=== PATIENT | male | born 1935 | race Caucasian/White ===

== ENCOUNTER 2023-12-04 14:17 | Inpatient (IN) | payer MEDICARE, SELFPAY ==
[2023-12-04 10:23] VITALS: BP 173/83
--- NOTE | 2023-12-04 11:10 | ED.GENMED ---
History of Present Illness
<Charmaine Wheeler PA-C - Last Filed: 12/04/23 16:58>
General
Chief Complaint: Throat Problem
Source: patient
Exam Limitations: none
Time Seen by Provider: 12/04/23 11:07
Nursing documentation reviewed up to this point in time: agreed with
History of Present Illness
History of Present Illness:
88-year-old male with a past medical history of A-fib on warfarin, insulin dependent diabetes, esophageal stricture presenting the emergency department today with concerns of intermittent lower rib pain as well as vomiting and spitting up of phlegm.
Patient reports that last night, he was watching the game and noticed that he could not swallow his saliva. He started spitting up a lot. Patient reports that at this time, he not have anything to eat or drink. He denies globus sensation, denies
hemoptysis, shortness of breath. He has also had a lot of coughing. His daughter present in room reports that patient has to get his esophageal dilation done when he gets like this. Patient states that hurts at times when he swallows. Daughter
reports that how he appears now is how he appeared when he had an esophageal stricture. He has had to do these procedures in the past. Patient denies belly pain, does note some chills but denies fevers.
Past History
<Charmaine Wheeler PA-C - Last Filed: 12/04/23 16:58>
Past History
ED Past Medical History: Arrthythmia (Atrial fibrillation), HTN, IDDM and Other (gout)
ED Past Surgical History: Cholecystectomy and Orthopedic
Social History
Personal:
Living: with family
Employment: Retired
Review of Systems
<Charmaine Wheeler PA-C - Last Filed: 12/04/23 16:58>
Review of Systems
All Other Systems: ROS reviewed and negative except as documented in HPI and ROS
Phy Exam
<Charmaine Wheeler PA-C - Last Filed: 12/04/23 16:58>
Physical Exam
Physical Exam:
General: Patient is well appearing and in no acute distress; non-toxic
Skin: Warm and dry, no rashes or lesions
Head: Normocephalic, atraumatic
Eyes: Sclera non-icteric. EOMs intact.
Mouth: No pharyngeal erythema, uvula midline.
Cardiac: Regular rate and rhythm, no murmurs
Pulm: Normal respiratory effort, no wheezes, rales, rhonchi
Abdomen: Mild epigastric abdominal tenderness, no palpable abdominal masses
Neuro: CN II-XII intact, no focal neurologic deficits.
Psychiatric: Appropriate mood and affect.
Course
<MARISEL Nguyen Filed: 12/04/23 16:58>
Orders/Labs/Results
Orders:
Orders
12/04/23 11:29
IV Insert/Care/Rem.- Treatment PRN
CR Chest - 2 Views Urgent
Comment:
Reason For Exam: lower chest pain
12/04/23 11:38
Complete Blood Count/With Diff Urgent
12/04/23 12:15
Comprehensive Metabolic Panel Urgent
Lipase Urgent
12/04/23 12:22
Consult Gastroenterology [GASTROINTESTINAL CONSULT] Urgent
Consulting Provider: Violetta Gomez
Was physician already notified: Yes
12/04/23 12:38
PTT Urgent
Prothrombin Time Urgent
12/04/23 13:24
Morphine Sulfate 4 mg IV NOW STA
12/04/23 14:04
Admit/Transfer Patient As Directed
Co-Sign Provider:
Level of Care: Inpatient admission
Assign to:: Telemetry
Physician / Group: Ada
Diagnosis: Transaminitis/Pancreatitis
Reason for Telemetry: Arrhythmia
Date to Stop Telemetry: 12/07/23
Time to Stop Telemetry: 11:00
Reason for Hospitalization: IVFs, IV abx
Expected length of stay greater than two midnights?: Yes
ELOS- Estimated Length of Stay in days: 3
I certify the patient meets the requirements for IP care: Yes
12/04/23 14:05
PRN Pain Medication Management As Directed
May give lesser potent ordered pain med per pt: Yes
preference::
Protocol:: Medication orders for pain may be administered in a
manner that supports deferring to patient preference
when the pt is:
- Requesting an ordered lesser potent pain medication.
Least to most potent pain medications are defined
as: acetaminophen < NSAID < tramadol < opioids
(morphine, oxycodone, hydromorphone).
- Requesting a lesser dose of the same medication IF
ORDERED.
- Requesting a less intrusive route of administration
if both routes are prescribed by the provider (PO <
IV).
12/04/23 15:55
Dextrose 50%-Water [Dextrose 50% Syringe] 12.5 grams IV [id number] PRN
Glucagon [GlucaGen] 1 mg IM PRN PRN
HYDROmorphone [Dilaudid] 0.25 mg IV Q3HPRN PRN
Ondansetron Injectable [Zofran] 4 mg IV Q6HPRN PRN
12/04/23 15:55
Activity As Directed
Activity Level: Out of Bed-Early Mobility
With Assistance
Bedside Glucose Monitoring As Directed
Frequency: AC&HS
Additional Instructions:: Change to q6h if pt on TPN, tube feeding or not eating
I&O [Intake/ Output] As Directed
Frequency: q12h
Pneumatic Compression Sleeves As Directed
Type: Knee high
Vital Signs As Directed
Frequency: Per unit guidelines
Weight As Directed
Frequency: Daily
Ot Eval And Treat Routine
Pt Eval And Treat Routine
Activity Level: Out of Bed-Early Mobility
DX Deep Vein Thrombosis Video Routine
12/04/23 16:00
Cefepime HCl [Maxipime] 2,000 mg IV Q12H
MetroNIDAZOLE 500 MG/100 ML [Flagyl 500 mg] 100 ml IV Q8H
12/04/23 16:30
Insulin Aspart Corrective Mod [Novolog Flexpen-Moderate Resistance] See Protocol SC AC
12/05/23 06:00
Complete Blood Count/No Diff IN AM
Comprehensive Metabolic Panel IN AM
Glycohemoglobin (HgbA1c) IN AM
Lipase IN AM
Magnesium IN AM
12/05/23 08:00
Pantoprazole [Protonix IV] 40 mg IV DAILY
12/07/23 11:00
DC Protocol for Telemetry ONCE
12/09/23 08:00
Clonidine [Bgotlzzs-Rls-4] 0.3 mg TRANSDERM WE
Abnormal Lab Results
12/04/23 12/04/23 12/04/23
11:38 12:15 12:38
WBC 17.1 H 10^3/uL
(4.8-10.8)
RBC 4.01 L 10^6/uL
(4.70-6.10)
Hgb 12.7 L g/dL
(13.0-18.0)
Hct 35.8 L %
(39.0-52.0)
MCH 31.7 H pg
(27.0-31.0)
MPV 12.2 H fL
(7.4-10.4)
Abs Immat Gran (auto) 0.2 H 10^3/uL
(0-0.05)
Absolute Neuts (auto) 15.5 H 10^3/uL
(1.4-6.5)
Absolute Lymphs (auto) 0.4 L 10^3/uL
(1.2-3.4)
Absolute Monos (auto) 1.0 H 10^3/uL
(0.1-0.6)
Immature Gran % 0.9 H %
(0-0.5)
Neutrophils % 90.9 H %
(42.2-75.2)
Lymphocytes % 2.1 L %
(20.5-51.1)
PT 17.6 H Sec
(11.4-14.6)
Carbon Dioxide 21 L mmol/L
(22-30)
BUN 37 H mg/dl
(9-20)
Creatinine 2.0 H mg/dL
(0.7-1.3)
Glucose 136 H mg/dl
(70-99)
Total Bilirubin 3.4 H mg/dl
(0.2-1.3)
AST 533 H* U/L
(17-59)
ALT 248 H U/L
(0-50)
Alkaline Phosphatase 396 H U/L
(38-126)
Lipase > 4000 H* U/L
(23-300)
12/04/23 11:38
12/04/23 12:15
Vital Signs
Initial and Last Documented VS:
Initial Vital Signs
Temp Pulse Resp BP Pulse Ox
99.7 F 95 16 173/83 98
12/04/23 10:23 12/04/23 10:23 12/04/23 10:23 12/04/23 10:23 12/04/23 10:23
Last Documented Vital Signs
Temp Pulse Resp BP Pulse Ox
98.0 F 74 18 131/68 97
12/04/23 16:00 12/04/23 16:19 12/04/23 16:19 12/04/23 16:00 12/04/23 16:19
<Ez Aguilar, DO - Last Filed: 12/04/23 13:26>
Orders/Labs/Results
Orders:
Orders
12/04/23 11:29
IV Insert/Care/Rem.- Treatment PRN
CR Chest - 2 Views Urgent
Comment:
Reason For Exam: lower chest pain
12/04/23 11:38
Complete Blood Count/With Diff Urgent
12/04/23 12:15
Comprehensive Metabolic Panel Urgent
Lipase Urgent
12/04/23 12:22
Consult Gastroenterology [GASTROINTESTINAL CONSULT] Urgent
Consulting Provider: Violetta Gomez
Was physician already notified: Yes
12/04/23 12:38
PTT Urgent
Prothrombin Time Urgent
12/04/23 13:24
Morphine Sulfate 4 mg IV NOW STA
12/04/23 14:04
Admit/Transfer Patient As Directed
Co-Sign Provider:
Level of Care: Inpatient admission
Assign to:: Telemetry
Physician / Group: Ada
Diagnosis: Transaminitis/Pancreatitis
Reason for Telemetry: Arrhythmia
Date to Stop Telemetry: 12/07/23
Time to Stop Telemetry: 11:00
Reason for Hospitalization: IVFs, IV abx
Expected length of stay greater than two midnights?: Yes
ELOS- Estimated Length of Stay in days: 3
I certify the patient meets the requirements for IP care: Yes
12/04/23 14:05
PRN Pain Medication Management As Directed
May give lesser potent ordered pain med per pt: Yes
preference::
Protocol:: Medication orders for pain may be administered in a
manner that supports deferring to patient preference
when the pt is:
- Requesting an ordered lesser potent pain medication.
Least to most potent pain medications are defined
as: acetaminophen < NSAID < tramadol < opioids
(morphine, oxycodone, hydromorphone).
- Requesting a lesser dose of the same medication IF
ORDERED.
- Requesting a less intrusive route of administration
if both routes are prescribed by the provider (PO <
IV).
12/04/23 15:55
Dextrose 50%-Water [Dextrose 50% Syringe] 12.5 grams IV [id number] PRN
Glucagon [GlucaGen] 1 mg IM PRN PRN
HYDROmorphone [Dilaudid] 0.25 mg IV Q3HPRN PRN
Ondansetron Injectable [Zofran] 4 mg IV Q6HPRN PRN
12/04/23 15:55
Activity As Directed
Activity Level: Out of Bed-Early Mobility
With Assistance
Bedside Glucose Monitoring As Directed
Frequency: AC&HS
Additional Instructions:: Change to q6h if pt on TPN, tube feeding or not eating
I&O [Intake/ Output] As Directed
Frequency: q12h
Pneumatic Compression Sleeves As Directed
Type: Knee high
Vital Signs As Directed
Frequency: Per unit guidelines
Weight As Directed
Frequency: Daily
Ot Eval And Treat Routine
Pt Eval And Treat Routine
Activity Level: Out of Bed-Early Mobility
DX Deep Vein Thrombosis Video Routine
12/04/23 16:00
Cefepime HCl [Maxipime] 2,000 mg IV Q12H
MetroNIDAZOLE 500 MG/100 ML [Flagyl 500 mg] 100 ml IV Q8H
12/04/23 16:30
Insulin Aspart Corrective Mod [Novolog Flexpen-Moderate Resistance] See Protocol SC AC
12/05/23 06:00
Complete Blood Count/No Diff IN AM
Comprehensive Metabolic Panel IN AM
Glycohemoglobin (HgbA1c) IN AM
Lipase IN AM
Magnesium IN AM
12/05/23 08:00
Pantoprazole [Protonix IV] 40 mg IV DAILY
12/07/23 11:00
DC Protocol for Telemetry ONCE
12/09/23 08:00
Clonidine [Xvujrsgg-Czp-0] 0.3 mg TRANSDERM WE
Abnormal Lab Results
12/04/23 12/04/23 12/04/23
11:38 12:15 12:38
WBC 17.1 H 10^3/uL
(4.8-10.8)
RBC 4.01 L 10^6/uL
(4.70-6.10)
Hgb 12.7 L g/dL
(13.0-18.0)
Hct 35.8 L %
(39.0-52.0)
MCH 31.7 H pg
(27.0-31.0)
MPV 12.2 H fL
(7.4-10.4)
Abs Immat Gran (auto) 0.2 H 10^3/uL
(0-0.05)
Absolute Neuts (auto) 15.5 H 10^3/uL
(1.4-6.5)
Absolute Lymphs (auto) 0.4 L 10^3/uL
(1.2-3.4)
Absolute Monos (auto) 1.0 H 10^3/uL
(0.1-0.6)
Immature Gran % 0.9 H %
(0-0.5)
Neutrophils % 90.9 H %
(42.2-75.2)
Lymphocytes % 2.1 L %
(20.5-51.1)
PT 17.6 H Sec
(11.4-14.6)
Carbon Dioxide 21 L mmol/L
(22-30)
BUN 37 H mg/dl
(9-20)
Creatinine 2.0 H mg/dL
(0.7-1.3)
Glucose 136 H mg/dl
(70-99)
Total Bilirubin 3.4 H mg/dl
(0.2-1.3)
AST 533 H* U/L
(17-59)
ALT 248 H U/L
(0-50)
Alkaline Phosphatase 396 H U/L
(38-126)
Lipase > 4000 H* U/L
(23-300)
12/04/23 11:38
12/04/23 12:15
Vital Signs
Initial and Last Documented VS:
Initial Vital Signs
Temp Pulse Resp BP Pulse Ox
99.7 F 95 16 173/83 98
12/04/23 10:23 12/04/23 10:23 12/04/23 10:23 12/04/23 10:23 12/04/23 10:23
Last Documented Vital Signs
Temp Pulse Resp BP Pulse Ox
98.0 F 74 18 131/68 97
12/04/23 16:00 12/04/23 16:19 12/04/23 16:19 12/04/23 16:00 12/04/23 16:19
Sylwialt;Charmaine Wheeler PA-C - Last Filed: 12/04/23 16:58>
MDM/Problems Addressed
Differential Diagnosis Includes:
ddx include esophageal stricture, achalasia, acute bronchitis, GERD
MDM/Problems Addressed:
Throat problem:
88-year-old male with a past medical history of A-fib on warfarin, insulin dependent diabetes, esophageal stricture presenting the emergency department today with concerns of intermittent lower rib pain as well as vomiting and spitting up of phlegm.
Daughter reports that this is how patient appeared when he had an esophageal stricture and he had to get a procedure to get this opened up twice in the past. I observed patient take sips of water. He states that he is able to get this down but it
did cause him some pain and had some belching afterwards. He does note some pain which he feels is unlike before however he has minimal abdominal tenderness on exam. I did send off labs and a chest x-ray.
I did make GI aware for possible endoscopy and stricture dilation. However, lab work came back revealing elevated white count, elevated total bili, elevated LFTs, and lipase over 4000. Did discuss with patient and family that I think
choledocholithiasis may be a possibility and he will need to be admitted for this. Dr. Aguilar my attending saw patient as well. Patient referred for admission.
Chronic conditions affecting care:
Hypertension, A-fib on warfarin, insulin-dependent diabetes
<Charmaine Wheeler PA-C - Last Filed: 12/04/23 16:58>
*Pulse Oximetry
Patient hypoxic: no
*Critical Care Note
Total Time (30-74mins, 75-104mins- exclusive of procedures): Not Applicable
Data Reviewed
Review of Other/Old Records Reveals: Records (Reviewed endoscopy procedure from 02/25/2023 which revealed abnormal motility in the esophagus and patient had a biopsy done and a dilation)
Source: patient and records
Prescriptions/Medications Considered But Not Given:
n/a
Further Testing Considered But Not Given:
n/a
ED Attending Note
<Charmaine Wheeler PA-C - Last Filed: 12/04/23 16:58>
-
Portions of this chart may have been created with voice recognition software.� Occasional wrong word or��sound alike� substitutions may have occurred due to the inherent limitations of voice recognition software.
<Ez Aguilar DO - Last Filed: 12/04/23 13:26>
ED Attending Note
Patient seen and examined by attending physician: Yes
I performed the substantive portion of visit, reviewed & personally made and approve the management plan that is documented in note by myself or FERNY.: Yes
ED Attending Note:
I have seen and evaluated the patient with a [id number] encounter. I have spoken to the advance practicer provider and involved in the medical history, the physical exam, medical decision making.
Evaluation and management service: agree unless noted differently below.
Results interpretation: agree unless noted differently below.
Focused HPI: 88-year-old male presenting with increased phlegm production and nausea and abdominal pain. Patient believes this could be related to a known esophageal stricture
Physical exam: Mildly uncomfortable. Right upper quadrant tenderness noted
Medical Decision Making: Chest x-ray clear. Initial thought was having GI involved early in his care to treat the known stricture. However, patient found to have significant transaminitis and elevated pancreas levels. He has already had his
gallbladder removed. We did discuss the possibility of choledocholithiasis. Will admit for further testing
Discharge Plan
Departure
Patient Disposition: Admit
Date of Disposition: 12/04/23
Time of Disposition: 13:29
Admit to: Med/Surg
Presentation/result/management discussed w/ accepting MD/DO: Hospitalist
Discharge Problem:
Transaminitis, Acute pancreatitis
Interventions
Interventions:
*Risk Screen - Suicide Last Done: 12/04/23 10:23
*General Assessment Last Done: 12/04/23 10:23
*Neglect/Abuse Screening Last Done: 12/04/23 10:23
ED- Fall Risk Assessment Last Done: 12/04/23 14:45
*ED COVID-19 Vaccine History Last Done: 12/04/23 11:12
*Nursing Disposition Last Done: 12/04/23 14:45
ED-EENT Assessment Last Done: 12/04/23 11:13
ED- Pulmonary Assessment Last Done: 12/04/23 11:13
Discharge Date and Time
Discharge Date/Time: 12/04/23 15:46
[2023-12-04 11:48] LABS: % Basophils 0.1 % (0-2); % Immature Granulocytes 0.9 % (0-0.5); % Lymphocytes 2.1 % (20.5-51.1); % Neutrophils 90.9 % (42.2-75.2); Absolute Immature Granulocytes 0.2 10^3/uL (0-0.05); Absolute Lymphocytes 0.4 10^3/uL (1.2-3.4); Absolute Neutrophils 15.5 10^3/uL (1.4-6.5); Hematocrit 35.8 % (39.0-52.0); Hemoglobin 12.7 g/dL (13.0-18.0); Mean Corp Hgb Conc. 35.5 g/dL (33.0-37.0); Mean Corpuscular Hgb 31.7 pg (27.0-31.0); Mean Corpuscular Volume 89.3 fL (80.0-94.0); Mean Platelet Volume 12.2 fL (7.4-10.4); Nucleated Red Blood Cells % 0 % (-); Platelet Count 135 10^3/uL (130-400); Red Blood Cell Count 4.01 10^6/uL (4.70-6.10); Red Cell Dist. Width 14.4 % (11.5-14.5); White Blood Cell Count 17.1 10^3/uL (4.8-10.8)
[2023-12-04 12:00] VITALS: BP 158/110
[2023-12-04 12:56] LABS: ALT (SGPT) 248 U/L (0-50); AST (SGOT) 533 U/L (17-59); Albumin 3.8 g/dl (3.5-5.0); Alkaline Phosphatase 396 U/L (38-126); Blood Urea Nitrogen 37 mg/dl (9-20); Calcium 9.1 mg/dl (8.4-10.2); Carbon Dioxide 21 mmol/L (22-30); Chloride 104 mmol/L (98-107); Glucose 136 mg/dl (70-99); Potassium 4.1 mmol/L (3.5-5.1); Sodium 140 mmol/L (135-145); Total Bilirubin 3.4 mg/dl (0.2-1.3); Total Protein 6.8 g/dl (6.3-8.2); eGFR 31.51
[2023-12-04 13:00] LABS: INR 1.47; PT 17.6 Sec (11.4-14.6)
[2023-12-04 13:01] LABS: APTT 27.1 Sec (23.4-35.0)
[2023-12-04 13:10] LABS: Lipase > 4000 U/L (23-300)
[2023-12-04] MEDS: MORPHINE SULFATE 4 MG IV (13:29)
--- NOTE | 2023-12-04 13:39 | CON.GI ---
Addendum entered and electronically signed by Violetta Gomez DO 12/04/23 15:08:
The patient was seen and examined by me independently in collaboration with the nurse practitioner.
Past medical history/social history/medications/allergies/family history reviewed.
Lab data and imaging data reviewed.
Chadwick Hudson is an 88 y.o. male w/ pmhx afib on eliquis (last dose last night), DM2, HTN, COPD, gout, CKD, hx of esophageal stricture s/p dilation (01/2023) who presents with right upper quadrant abdominal discomfort and dysphagia x1 day.
EGD in January [address] Lafleur demonstrated abnormal esophageal motility, benign appearing esophageal stenosis, dilated to 18 mm, paraesophageal hernia, nodule in stomach, bx unremarkable.
Reports no dysphagia since he was dilated, until last night, spitting up saliva, not tolerating liquid. However, upon evaluation, patient states that sensation cleared and is swallowing liquid without issue. He is laying supine, breathing
comfortably. He has minimal abdominal comfort on exam.
Labs returned with a leukocytosis of 17.1 and significantly elevated liver enzymes, Tbili 3.4, AST 533, ALT 248, Alk phos 396, >4,000. Imaging pending.
#Abdominal pain w/ elevated LFTs and elevated lipase meets diagnostic criteria for acute pancreatitis
-hx of cholecystectomy
-he is afebrile, no signs of cholangitis
-check abdominal US, may need to proceed with MRI/MRCP, which patient is agreeable to
-check blood cx
-IVF, trend BUN
-start abx- cefepime/flagyl
#Dysphagia-- known esophageal stricture as well as abnormal motility, previously dilated in 01/2023
-initial concerns for food impaction, now not having any issues, no clinical concern for impaction at this time
-nonurgent EGD-depending on clinical course, inpatient vs. outpatient
-c/w PPI
Original Note:
Consultation
-
Date/Time Consultation Requested: 12/04/23 0639
Date/Time Consultation Performed: 12/04/23 1345
Requesting Provider: Charmaine Iglesias PA-C
Performing Provider: BILL Moulton, Brielle Gomez DO
Reason for Consultation: dysphagia, abdominal pain increased LFT's and lipase
Medical History
Chief Complaint / HPI
Chief Complaint: difficulty swallowing, abdominal pain
History of Present Illness:
Pt is an 88yo with hx afib on Eliquis, IDDM, HTN, gout, COPD, CKD, prior sudha dysphagia with prior dilation for benign stenosis presents with noted onset of difficulty swallowing this am and bringing up mucous. After admission symptoms improved
and able to tolerate water. He also had some complaints of mid abdominal and back pain and noted with WBC 17,100 with creat 2 (known CKD) but bili 3.4, AST 533, ALT 248, alk phos 396 and lipase >4000. Pt denies hx prior pancreatitis but distant hx
sudha. Did not recall need for ERCP in past. Pt admits to some worsening swallowing issues with solids. He has had wt loss over time but denies GERD, nausea, diarrhea, constipation or rectal bleeding. No change in stool color but noted dark
urine.
01/2023 EGD abnormal esophageal motility, benign appearing esophageal stenosis with dilatation 16.5- 18, paraesophageal hernia, nodule in stomach bx neg
Past Medical History
Past Medical History: Arrhythmias (afib), COPD, HTN, NIDDM, Renal Failure (CKD) and Other (gout, edema, colon polyps)
Past Surgical History: Cholecystectomy
Social History
Tobacco: Former Smoker
Alcohol: None
Drug: None
Living: [place]one ([place] )
Employment: Retired
Family History
Family History: Other (sister and father with lung CA, no family hx colon CA, pancreatic or liver problems )
Allergies / Home Medications
Allergy/AdvReac Type Severity Reaction Status Date / Time
haloperidol [From Haldol] Allergy Unknown Verified 12/04/23 10:23
Penicillins Allergy Unknown Verified 09/06/24 10:23
zolpidem [From Ambien] Allergy Unknown Verified 12/04/23 10:23
�Medication �Instructions �Recorded
albuterol sulfate 90 mcg/actuation 1 puff inhalation QID PRN sob 10/16/17
aerosol inhaler (Proventil HFA)
atorvastatin 80 mg tablet 40 mg PO DAILY 10/16/17
cholecalciferol (vitamin D3) 50 2,000 unit PO DAILY 10/16/17
mcg (2,000 unit) tablet
cinnamon bark 500 mg capsule 1,000 mg PO DAILY 10/16/17
(Cinnamon)
clonidine 0.3 mg/24 hr weekly 0.3 mg transdermal Q7D 10/16/17
transdermal patch
insulin aspar prt-insulin aspart 30 units SC QPM 10/16/17
100 unit/mL (70-30) subcutaneous
soln (Novolog Mix 70-30 U-100
Insuln)
insulin aspar prt-insulin aspart 40 units SC DAILY 10/16/17
100 unit/mL (70-30) subcutaneous
soln (Novolog Mix 70-30 U-100
Insuln)
metoprolol tartrate 50 mg tablet 50 mg PO BID 10/16/17
omeprazole 20 mg capsule,delayed 20 mg PO DAILY 10/16/17
release
oxycodone-acetaminophen 5 mg-325 1 ea PO Q6H PRN pain 10/16/17
mg tablet
verapamil 240 mg tablet,extended 240 mg PO BID 10/16/17
release
warfarin 5 mg tablet (Jantoven) 5 mg PO DAILY 10/16/17
Review of Systems
-
History Source: Patient and Family
Constitutional: Reports Weight Loss (215- 160 lbs over time )
EENT: Reports Other (dysphagia prior to admission)
Respiratory: Reports No Symptoms
Cardiac: Reports No Symptoms
Abdomen/GI: Reports Abdominal Pain
: Reports No Symptoms
Musculoskeletal: Reports No Symptoms
Skin: Reports No Symptoms
Neurological: Reports Weakness
Endocrine: Reports No Symptoms
Vital Signs
Temp Pulse Resp BP Pulse Ox
99.7 F 98 16 158/110 96
12/04/23 10:23 12/04/23 12:00 12/04/23 12:00 12/04/23 12:00 12/04/23 12:00
Physical Exam
Exam
General: Well Developed and Well Nourished
HEENT: Normocephalic and Other (mild jaundice )
Respiratory: Other (course in bases )
Cardiac: Regular Rhythm
GI: Soft, Non Distended and Tender (mild RUQ to right of umbilical area)
Genito-urinary: No Costovertebral Tender
Musculoskeletal: No Clubbing and No Cyanosis
Skin: Warm and Dry
Neuro: Awake, Alert and AO x 3
Psych: Calm
Results
WBC 17.1 10^3/uL (4.8-10.8) H 12/04/23 11:38
Hgb 12.7 g/dL (13.0-18.0) L 12/04/23 11:38
Hct 35.8 % (39.0-52.0) L 12/04/23 11:38
MCV 89.3 fL (80.0-94.0) 12/04/23 11:38
Plt Count 135 10^3/uL (130-400) 12/04/23 11:38
Absolute Neuts (auto) 15.5 10^3/uL (1.4-6.5) H 12/04/23 11:38
PT 17.6 Sec (11.4-14.6) H 12/04/23 12:38
INR 1.47 12/04/23 12:38
APTT 27.1 Sec (23.4-35.0) 12/04/23 12:38
Sodium 140 mmol/L (135-145) 12/04/23 12:15
Potassium 4.1 mmol/L (3.5-5.1) 12/04/23 12:15
Chloride 104 mmol/L (98-107) 12/04/23 12:15
Carbon Dioxide 21 mmol/L (22-30) L 12/04/23 12:15
BUN 37 mg/dl (9-20) H 12/04/23 12:15
Creatinine 2.0 mg/dL (0.7-1.3) H 12/04/23 12:15
Calcium 9.1 mg/dl (8.4-10.2) 12/04/23 12:15
Total Bilirubin 3.4 mg/dl (0.2-1.3) H 12/04/23 12:15
AST 533 U/L (17-59) H* 12/04/23 12:15
ALT 248 U/L (0-50) H 12/04/23 12:15
Alkaline Phosphatase 396 U/L (38-126) H 12/04/23 12:15
Lipase > 4000 U/L (23-300) H* 12/04/23 12:15
Diagnostic Image Results:
Prior GI Procedures:
EGD: 01/[address] Lafleur abnormal esophageal motility, benign appearing esophageal stenosis with dilatation 16.5- 18, paraesophageal hernia, nodule in stomach bx neg
Colonoscopy: prior to age 80 in [place] with polyps
Assessment / Plan
-
Pt is an 88yo with hx afib on Eliquis, IDDM, HTN, gout, COPD, CKD, prior sudha dysphagia with prior dilation for benign stenosis presents with noted onset of difficulty swallowing this am and bringing up mucous. After admission symptoms improved
and able to tolerate water. He also had some complaints of mid abdominal and back pain and noted with WBC 17,100 with creat 2 (known CKD) but bili 3.4, AST 533, ALT 248, alk phos 396 and lipase >4000. Pt admits to some worsening swallowing issues
with solids. He has had wt loss over time but denies GERD, nausea, diarrhea, constipation or rectal bleeding. No change in stool color but noted dark urine. Pt denies hx prior pancreatitis but distant hx sudha. Did not recall need for ERCP in
past.
-mild abdominal pain with elevated LFT's and lipase
-dysphagia on admission now improved
-afib on Eliquis prior to admission
-sudha
-hx prior EGD with esophageal dysmotility benign stenosis with prior dilation
other medical problems:
-IDDM
-HTN
-CHF
-gout
-COPD
-CKD
PLAN:
etiology of elevated LFT's and lipase related to biliary, pancreatic, CBD stone, vs other process
for US abdomen
may need MRI if US not revealing
trend labs
IVF management per medical team with hx CHF/ CDK
only mild pain on exam
currently no signs of food impaction with dysphagia
ok for clear diet
t/c eventual EGD
Eliquis hold last dose 12/02
-
-
Thank you for consultation and allowing me to participate in the patient's care. Please call the high tension tester GI physician during the after hours with any questions or concerns.
--- NOTE | 2023-12-04 13:48 | HPS.HSE ---
Family Physician
-
Family Physician: Christina Sen MD
Chief Complaint
-
Vomiting and Abdominal Pain
History of Present Illness
Patient is an 88 yo male with a history of Afib on Eliquis, IDDM, esophageal stricture presents with abdominal pain and vomiting that began this morning. He reports his pain is a sharp, stabbing pain in the epigastric/RUQ region that has been
constant. He says he has vomited 'a lot' and that the emesis is a white-janey fluid. This morning he also had chills and shakes that is abnormal for him. His daughter in the room reports that his current presentation is similar to when he last had an
esophageal stricture. He denies recorded fevers, chest pains, diarrhea or constipation. He reports prior cholecystectomy. He denies prior history of pancreatitis/biliary obstruction.
Medical History
Past Medical History
Past Medical History: Reports Other
Additional Past Medical History:
Chronic HFpEF
Paroxysmal Atrial Fibrillation
Essential Hypertension
Hyperlipidemia
Diabetes Mellitus, Type II
CKD Stage IV
COPD
GERD / Esophageal Stricture
Gout
Past Surgical History: Reports Other
Additional Past Surgical History:
Esophageal Dilation
Cholecystectomy
Hand Surgery x 2
Social History
Tobacco: Former Smoker
Alcohol: None
Family History
Family History: Not pertinent
Allergies / Home Medications
Allergies reflects when Allergies were last updated in [facility].
Home Medications with original date entered in [facility]
Allergy/Medication List:
Allergies
Allergy/AdvReac Type Severity Reaction Status Date / Time
haloperidol [From Haldol] Allergy Unknown Verified 12/04/23 10:23
Penicillins Allergy Unknown Verified 12/04/23 10:23
zolpidem [From Ambien] Allergy Unknown Verified 12/04/23 10:23
Home Medications
albuterol sulfate 90 mcg/actuation aerosol inhaler (Proventil HFA) 1 puff inhalation R QIDPRN PRN sob 10/16/17
atorvastatin 80 mg tablet 40 mg PO DAILY 10/16/17
cholecalciferol (vitamin D3) 50 mcg (2,000 unit) tablet 2,000 unit PO DAILY 10/16/17
cinnamon bark 500 mg capsule (Cinnamon) 1,000 mg PO DAILY 10/16/17
clonidine 0.3 mg/24 hr weekly transdermal patch 0.3 mg transdermal WE 10/16/17
insulin aspar prt-insulin aspart 100 unit/mL (70-30) subcutaneous soln (Novolog Mix 70-30 U-100 Insuln) 12 units SC QPM 10/16/17
insulin aspar prt-insulin aspart 100 unit/mL (70-30) subcutaneous soln (Novolog Mix 70-30 U-100 Insuln) 24 units SC DAILY 10/16/17
metoprolol tartrate 50 mg tablet 50 mg PO BID 10/16/17
omeprazole 20 mg capsule,delayed release 20 mg PO DAILY 10/16/17
verapamil 240 mg tablet,extended release 240 mg PO BID 10/16/17
apixaban 2.5 mg tablet (Eliquis) 2.5 mg PO BID 12/04/23
furosemide 20 mg tablet (Lasix) 20 mg PO DAILY 12/04/23
oxycodone-acetaminophen 5 mg-325 mg tablet 1 tab PO Q6HPRN PRN severe pains 12/04/23
Review of Systems
-
A 12 point ROS was completed and negative except as noted: Yes
Constitutional: Reports Chills; Denies Fever
Respiratory: Denies Cough or Trouble Breathing
Cardiac: Denies Chest Pain or Palpitations
Abdomen/GI: Reports See HPI
Physical Exam
Vital Signs
Vital Signs
Temp Pulse Resp BP Pulse Ox
99.7 F 98 16 158/110 96
12/04/23 10:23 12/04/23 12:00 12/04/23 12:00 12/04/23 12:00 12/04/23 12:00
Physical Exam
General: Comfortable and Conversant
HEENT: Anicteric and Moist mucous membranes
Respiratory: Clear and Non Labored Respirations
Cardiac: S1/S2, Regular Rhythm and Murmur; No Tachycardia
GI: Soft, Non Distended and Tender (Epigastric region without rebound or guarding)
Rectal: Deferred by Provider
Musculoskeletal: No Clubbing, No Cyanosis and No Edema
Skin: Warm and Dry; No Jaundice
Neuro: Awake, Alert, Oriented and Nonfocal/grossly intact
Psych: Calm
Laboratory Results
-
12/04/23 11:38
12/04/23 12:15
Laboratory Results
PT 17.6 Sec (11.4-14.6) H 12/04/23 12:38
INR 1.47 12/04/23 12:38
APTT 27.1 Sec (23.4-35.0) 12/04/23 12:38
Total Bilirubin 3.4 mg/dl (0.2-1.3) H 12/04/23 12:15
AST 533 U/L (17-59) H* 12/04/23 12:15
ALT 248 U/L (0-50) H 12/04/23 12:15
Alkaline Phosphatase 396 U/L (38-126) H 12/04/23 12:15
Lipase > 4000 U/L (23-300) H* 12/04/23 12:15
Data Reviewed
-
Lab Data: Labs Reviewed by me
Impression/Plan
-
Abdominal Pain and Transaminitis/Pancreatitis, high clinical concern for CBD Obstruction
-Consult GI
-Check Abd US - Consider MRI based on results
-Trend LFTS and Lipase
-Allow clear liquids
-Continue Cefepime/Flagyl
Hx Esophageal Stricture - Patient able to tolerated liquids at present time
-Consult GI
-Continue Protonix IV
Chronic HFpEF
-Hold Lasix
-Monitor Is&Os and Daily Weight
Paroxysmal Atrial Fibrillation
-Hold Eliquis
-Continue Metoprolol and Verapamil
Essential Hypertension
-Continue Metoprolol, Verapamil and clonidine patch
Diabetes Mellitus, Type II
-Hold Novolog 70/30 - Give Lantus 10 units HS
-Monitor sugars and continue coverage insulin
CKD Stage IV
-Creatinine at baseline
COPD, no acute exacerbation
-Continue nebulizer prn
DVT proph: SCDs until able to resume Eliquis
Code Status: DNR
[2023-12-04 14:12] VITALS: BP 132/56
--- NOTE | 2023-12-04 15:41 | W.PN.UPDATE ---
Update Note
Progress Note Update
This is an addendum to the H&P written by Rubi Mantilla on 12/04/2023. Patient seen and examined independently with PA.
88-year-old male past medical history of cholecystectomy, atrial fibrillation on Eliquis, chronic HFpEF, diabetes, esophageal stricture status post dilation, CKD 4, COPD, gout, here with epigastric abdominal pain, chills and spitting up saliva now
improved. Labs show elevated liver enzymes, lipase.
Concerning for choledocholithiasis/biliary pancreatitis. Abdominal ultrasound pending. May need MRCP. Hold Eliquis. Cefepime/Flagyl. Clear liquid diet. IV fluids but cautious given history of heart failure. Hold Lasix. GI consulted.
[2023-12-04 16:00] VITALS: BP 131/68
[2023-12-04 16:18] LABS: Glucose - Point of Care 123 mg/dl (70-99)
[2023-12-04] MEDS: NOVOLOG FLEXPEN-MODERATE RESISTANCE SC (16:18)
[2023-12-04] MEDS: FLAGYL 500 MG 100 IV (16:26)
[2023-12-04] MEDS: MAXIPIME 1000 MG IV (17:43)
[2023-12-04] MEDS: STERILE WATER FOR INJECTION 10 ML IV (17:44)
[2023-12-04] MEDS: LR 1000 IV (17:46)
[2023-12-04 18:57] LABS: Lactic Acid 4.4 mmol/L (0.7-2.0)
[2023-12-04 19:00] VITALS: BP 112/55
[2023-12-04 19:26] LABS: Hepatitis B Surface Antigen Negative (Negative)
[2023-12-04 19:44] LABS: Hepatitis B Core Ab, Total Negative (Negative); Hepatitis C Antibody Negative (Negative)
[2023-12-04 21:12] LABS: Glucose - Point of Care 128 mg/dl (70-99)
[2023-12-04] MEDS: TYLENOL 650 MG PO (21:54)
[2023-12-04] MEDS: LOPRESSOR 50 MG PO (21:55)
[2023-12-04] MEDS: CALAN EXTENDED RELEASE 240 MG PO (21:56)
[2023-12-04] MEDS: LANTUS 0.1 UNITS SC (21:56)
[2023-12-04 23:00] VITALS: BP 111/63
[2023-12-05] VITALS (9 sets, daily range): BP systolic 90–152; BP diastolic 50–97; PULSE 80; O2SAT 92; BMI 26.3
[2023-12-05] MEDS: FLAGYL 500 MG 100 IV ×3 (00:08→16:54)
[2023-12-05] MEDS: FLUSH (NSS) 2 FLUSH IV ×2 (00:08→06:37)
[2023-12-05 01:10] LABS: Lactic Acid 3.3 mmol/L (0.7-2.0)
[2023-12-05] MEDS: LR 1000 IV ×3 (04:57→22:15)
[2023-12-05] MEDS: MAXIPIME 1000 MG IV ×2 (06:36→17:47)
[2023-12-05] MEDS: STERILE WATER FOR INJECTION 10 ML IV ×2 (06:37→17:47)
[2023-12-05 07:14] LABS: Lactic Acid 4.2 mmol/L (0.7-2.0)
[2023-12-05 07:44] LABS: Hematocrit 37.2 % (39.0-52.0); Hemoglobin 12.5 g/dL (13.0-18.0); Mean Corp Hgb Conc. 33.6 g/dL (33.0-37.0); Mean Corpuscular Hgb 31.4 pg (27.0-31.0); Mean Corpuscular Volume 93.5 fL (80.0-94.0); Mean Platelet Volume 12.2 fL (7.4-10.4); Platelet Count 110 10^3/uL (130-400); Red Blood Cell Count 3.98 10^6/uL (4.70-6.10); Red Cell Dist. Width 15.3 % (11.5-14.5); White Blood Cell Count 17.9 10^3/uL (4.8-10.8)
--- NOTE | 2023-12-05 08:21 | W.PN.GI.CBS2 ---
Today's Communication / Plan
-
bolus 250 cc LR. Recheck labs in afternoon. f/u MRI/MRCP
Assessment / Plan
-
Chadwick Hudson is an 88 y.o. male w/ pmhx afib on eliquis (last dose 12/02 PM), DM2, HTN, COPD, gout, CKD, hx of esophageal stricture s/p dilation (01/2023) who presents with right upper quadrant abdominal discomfort and dysphagia x1 day.
EGD in January [address] Lafleur demonstrated abnormal esophageal motility, benign appearing esophageal stenosis, dilated to 18 mm, paraesophageal hernia, nodule in stomach, bx unremarkable.
Reports no dysphagia since he was dilated, until the night prior to presentation, spitting up saliva, not tolerating liquid. However, upon initial evaluation, patient states that sensation cleared and was swallowing liquid without issue.
-->Labs returned with a leukocytosis of 17.1 and significantly elevated liver enzymes, Tbili 3.4, AST 533, ALT 248, Alk phos 396, >4,000.
-->Abdominal US: Liver appears homogenous in echotexture, no discrete lesions. Surgically absent gallbladder. Extra-hepatic common bile duct measuring 12 mm (previously measuring 8 mm in 2020) with mild intrahepatic ductal dilation, visualized
portions of the pancreas appear unremarkable
Lipase >4,000 --> 1736
Tbili 3.4 --> 5.6
AST 533 --> 309
ALT 248 --> 226
Alk phos 396 --> 279
Lactate 4.4 --> 3.3 --> 4.2
CO2 21 --> 14
K 4.1 --> 5.3
BUN 41 --> 37; Cr. 2.0 --> 2.4
#Abdominal pain w/ elevated LFTs and elevated lipase meets diagnostic criteria for acute pancreatitis w/ hospital course c/b PORFIRIO with metabolic lactic acidosis
-LR @ 100 cc/hr
-hx of cholecystectomy
-he is afebrile, but leukocytosis and elevated lactate; clinically, he is nontoxic appearing with only mild discomfort on exam, remains afebrile
-BCx pending; started on cefepime/flagyl (day 2)
-abdominal US with interval increase in extrahepatic CBD dilation to 12mm, previously 8 mm in 2020; MRI/MRCP pending
-transaminases improving with worsening tbili, f/u MRI, check direct bili
-worsening acidosis with PORFIRIO and increasing lactate and leukocytosis; will bolus 250 cc fluid now, hx of HF so need to be cautious
-check urine studies
-repeat labs in early afternoon
#Dysphagia-- known esophageal stricture as well as abnormal motility, previously dilated in 01/2023
-initial concerns for food impaction, now not having any issues, no clinical concern for impaction at this time
-nonurgent EGD-depending on clinical course, inpatient vs. outpatient
-c/w PPI
Subjective
Subjective
Date of Service: December 05, 2023
Patient offers no complaints this morning, states he slept very well. Still complains of some mild discomfort in his right upper quadrant, no dysphagia, tolerating secretions and liquids without issue.
Objective
Data Reviewed
Laboratory Data:
Laboratory Results
12/05/23 06:50
Laboratory Results
PT 17.6 Sec (11.4-14.6) H 12/04/23 12:38
INR 1.47 12/04/23 12:38
APTT 27.1 Sec (23.4-35.0) 12/04/23 12:38
Total Bilirubin 3.4 mg/dl (0.2-1.3) H 12/04/23 12:15
AST 533 U/L (17-59) H* 12/04/23 12:15
ALT 248 U/L (0-50) H 12/04/23 12:15
Alkaline Phosphatase 396 U/L (38-126) H 12/04/23 12:15
Lipase > 4000 U/L (23-300) H* 12/04/23 12:15
Vital Signs and I&O:
Vital Signs
Temp Pulse Resp BP Pulse Ox
98.2 F 72 18 124/97 95
12/05/23 07:10 12/05/23 07:10 12/05/23 07:10 12/05/23 07:10 12/05/23 07:10
I&O
12/04/23 12/05/23 12/06/23
06:59 06:59 06:59
Intake Total 1393 / 1393
Output Total 500 / 500
Balance 893 / 893
[2023-12-05 08:25] LABS: Glucose - Point of Care 91 mg/dl (70-99)
[2023-12-05] MEDS: NOVOLOG FLEXPEN-MODERATE RESISTANCE SC ×3 (08:25→17:07)
[2023-12-05 08:26] LABS: ALT (SGPT) 226 U/L (0-50); AST (SGOT) 309 U/L (17-59); Albumin 3.6 g/dl (3.5-5.0); Alkaline Phosphatase 279 U/L (38-126); Blood Urea Nitrogen 41 mg/dl (9-20); Calcium 8.8 mg/dl (8.4-10.2); Carbon Dioxide 14 mmol/L (22-30); Chloride 102 mmol/L (98-107); Estimated Creatinine Clearance 23 ml/min; Glucose 104 mg/dl (70-99); Lipase 1736 U/L (23-300); Magnesium 1.5 mg/dl (1.6-2.3); Potassium 5.3 mmol/L (3.5-5.1); Sodium 138 mmol/L (135-145); Total Bilirubin 5.6 mg/dl (0.2-1.3); Total Protein 6.7 g/dl (6.3-8.2); eGFR 25.32
[2023-12-05] MEDS: LOPRESSOR 50 MG PO ×2 (08:26→22:20)
[2023-12-05] MEDS: CALAN EXTENDED RELEASE 240 MG PO ×2 (08:26→22:20)
[2023-12-05] MEDS: PROTONIX IV 40 MG IV (08:27)
[2023-12-05] MEDS: NSS (PRESERVATIVE FREE) 10 ML IV (08:27)
[2023-12-05 08:48] LABS: Glycohemoglobin (HgbA1c) 6.5 % (4.0-5.6)
[2023-12-05] MEDS: LR 250 IV (09:52)
--- NOTE | 2023-12-05 10:27 | W.PN.HOSP.TC ---
Today's Communication/Plan
-
see bold
Assessment / Plan
Assessment / Plan
Gen: NAD, AAOx3.
Eyes: EOMI, PERRLA, no scleral icterus.
Neck: supple.
CV: RRR, +S1/S2, no m/r/g.
Resp: Mild expiratory wheezes
Abd: +BS, soft, epigastric tenderness palpation with guarding, ND
Skin: No rashes.
Neuro: CN 2-12 intact, non-focal.
Psych: Normal mood and affect.
Abd U/S: Status post cholecystectomy with mild intrahepatic and extrahepatic biliary ductal dilatation. The common duct measures up to 12 mm, previously measuring up to 8 mm. This may be related to postcholecystectomy state and advanced age, but
given interval increase since 2020, underlying distal obstruction or stricture is possible. If clinically indicated, MRCP could be performed.
Abdominal Pain and Transaminitis/Pancreatitis, high clinical concern for CBD Obstruction:
-with AG met acidosis due to lactic acidosis
-GI following
-Check MRI Abd with MRCP
-LFTS and Lipase improving
-Allow clear liquids
-increase LR to 150cc/hr
-Continue Cefepime/Flagyl
Hx Esophageal Stricture - Patient able to tolerated liquids at present time
-GI following
-Continue Protonix IV
Chronic HFpEF
-Hold Lasix
-Monitor Is&Os and Daily Weight
Paroxysmal Atrial Fibrillation
-Hold Eliquis
-Continue Metoprolol and Verapamil
Essential Hypertension
-Continue Metoprolol, Verapamil and clonidine patch
Diabetes Mellitus, Type II
-Hold Novolog 70/30 - Give Lantus 10 units HS
-Monitor sugars and continue coverage insulin
CKD Stage IV
-Creatinine at baseline
COPD, no acute exacerbation
-Continue nebulizer prn
DNR/SCDs until able to resume Eliquis
Total time spent on today's encounter was 50 minutes which included time spent in counseling the patient/family regarding diagnosis and treatment plan as listed above, goals of care, and symptom management. Case was discussed with nursing staff,
specialists, and care coordinators/case management. All labs and imaging personally reviewed by me. Remainder the time spent in detailed review of previous records, lab data, imaging, and other medical provider documentation.
Anticipated Discharge: > 48 hours
Subjective/Interval History
-
Date of Service: December 05, 2023
Denies chest pain or shortness of breath. Reports epigastric pain.
Objective Data
-
Labs:
Laboratory Results
12/05/23 12/05/23
06:50 13:34
WBC 17.9 H Pending
Hgb 12.5 L Pending
Hct 37.2 L Pending
Plt Count 110 L Pending
Sodium 138 Pending
Potassium 5.3 H D Pending
Chloride 102 Pending
Carbon Dioxide 14 L* Pending
BUN 41 H Pending
Creatinine 2.4 H Pending
Glucose 104 H Pending
Calcium 8.8 Pending
Total Bilirubin 5.6 H D Pending
AST 309 H Pending
ALT 226 H Pending
Alkaline Phosphatase 279 H Pending
Vital Signs:
Vital Signs
Temp Pulse Resp BP Pulse Ox
98.2 F 75 18 124/91 95
12/05/23 07:10 12/05/23 08:26 12/05/23 07:10 12/05/23 08:26 12/05/23 07:10
I&O
12/04/23 12/05/23 12/06/23
06:59 06:59 06:59
Intake Total 1393 / 1393
Output Total 500 / 500
Balance 893 / 893
[2023-12-05 12:13] LABS: Glucose - Point of Care 90 mg/dl (70-99)
--- NOTE | 2023-12-05 12:21 | PTCARENOTE ---
Critical labs this AM. WBC `17.9, Lactate 4.4, K 5.4 Creatinine up to 2.4, TOTal bili 5.6. LFT improved from yesterday. PT with increased confusion from baseline as per daughter ( he is AAOx3) just off, [place] more forgetful, Skin is yellow HR in 60s
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 PT with new cough prior CXR without findings. temp 98.2 Orthos done as he dropped to 90s with PT, IVF bolus given as per MD order, Orthos repeated SBP 120s lying sitting standing. pt denied any
dizziness. . MD made aware and stated he would order more IVF. Daughter at bedside concernede about his new change in mental status and new cough. MD not able to speak to family at this moment but took phone number and will call daughter.
[2023-12-05 12:48] LABS: % Basophils 0.3 % (0-2); % Immature Granulocytes 2.3 % (0-0.5); % Monocytes 6.8 % (1.7-9.3); % Neutrophils 85.6 % (42.2-75.2); Absolute Basophils 0.1 10^3/uL (0-0.2); Absolute Immature Granulocytes 0.5 10^3/uL (0-0.05); Absolute Lymphocytes 1.2 10^3/uL (1.2-3.4); Absolute Monocytes 1.6 10^3/uL (0.1-0.6); Absolute Neutrophils 20.4 10^3/uL (1.4-6.5); Hematocrit 34.9 % (39.0-52.0); Hemoglobin 12.3 g/dL (13.0-18.0); Mean Corp Hgb Conc. 35.2 g/dL (33.0-37.0); Mean Corpuscular Hgb 30.8 pg (27.0-31.0); Mean Corpuscular Volume 87.3 fL (80.0-94.0); Mean Platelet Volume 12.5 fL (7.4-10.4); Nucleated Red Blood Cells % 0 % (-); Platelet Count 118 10^3/uL (130-400); Red Cell Dist. Width 14.9 % (11.5-14.5); White Blood Cell Count 23.8 10^3/uL (4.8-10.8)
[2023-12-05 13:26] LABS: Glucose - Point of Care 114 mg/dl (70-99)
[2023-12-05 13:44] LABS: Lactic Acid 4.4 mmol/L (0.7-2.0)
[2023-12-05 13:56] LABS: Urine Sodium 24 mmol/L (30-90)
--- NOTE | 2023-12-05 14:01 | PTCARENOTE ---
MD made aware again of morning labs with worsening WBC and lactate, only order was LR increased to 150 earlier this am. Awaiting for MD response. [employer] chandan bmp and just sent it and will update with chemistry
[2023-12-05 14:07] LABS: ALT (SGPT) 211 U/L (0-50); AST (SGOT) 305 U/L (17-59); Albumin 3.6 g/dl (3.5-5.0); Alkaline Phosphatase 269 U/L (38-126); Blood Urea Nitrogen 42 mg/dl (9-20); Calcium 8.9 mg/dl (8.4-10.2); Carbon Dioxide 18 mmol/L (22-30); Chloride 100 mmol/L (98-107); Direct Bilirubin 4.8 mg/dl (0.0-0.4); Estimated Creatinine Clearance 23 ml/min; Glucose 86 mg/dl (70-99); Potassium 4.4 mmol/L (3.5-5.1); Sodium 137 mmol/L (135-145); Total Protein 6.7 g/dl (6.3-8.2); eGFR 25.32
--- NOTE | 2023-12-05 14:24 | CM ---
IA completed with pt.
Pt is an 88yr old male admitted with pancreatitis.
Pt lives in an in laws suite off his daughters home, and is independent at baseline.
Pt does have a cane, scooter, and shower chair.
At this time, pt is not participating in therapy due to not feeling well.
PCP; Christina Sen
Pharm; Shelly Henley
PLAN; DC to home with VN; though watch for possible PT goal changes based on pts participation
[2023-12-05 17:03] LABS: Glucose - Point of Care 114 mg/dl (70-99)
[2023-12-05] MEDS: MAGNESIUM SULFATE 50 IV (17:46)
[2023-12-05 21:36] LABS: Glucose - Point of Care 124 mg/dl (70-99)
[2023-12-05] MEDS: LANTUS 0.1 UNITS SC (22:33)
[2023-12-06] VITALS (8 sets, daily range): BP systolic 115–141; BP diastolic 55–74; PULSE 72–74; BMI 27.8
[2023-12-06] MEDS: FLAGYL 500 MG 100 IV ×3 (00:19→17:53)
[2023-12-06] MEDS: FLUSH (NSS) 2 FLUSH IV ×2 (00:21→06:16)
[2023-12-06] MEDS: MAXIPIME 1000 MG IV ×2 (06:15→17:52)
[2023-12-06] MEDS: LR 1000 IV ×2 (06:15→14:17)
[2023-12-06] MEDS: STERILE WATER FOR INJECTION 10 ML IV ×2 (06:16→17:53)
[2023-12-06] MEDS: CALAN EXTENDED RELEASE 240 MG PO ×2 (08:12→21:09)
[2023-12-06] MEDS: LOPRESSOR 50 MG PO ×2 (08:12→21:10)
[2023-12-06] MEDS: PROTONIX IV 40 MG IV (08:12)
[2023-12-06] MEDS: NSS (PRESERVATIVE FREE) 10 ML IV (08:13)
[2023-12-06] MEDS: NOVOLOG FLEXPEN-MODERATE RESISTANCE SC ×3 (08:15→17:53)
[2023-12-06 08:16] LABS: Glucose - Point of Care 76 mg/dl (70-99)
[2023-12-06 08:25] LABS: ALT (SGPT) 192 U/L (0-50); AST (SGOT) 226 U/L (17-59); Albumin 3.1 g/dl (3.5-5.0); Alkaline Phosphatase 247 U/L (38-126); Blood Urea Nitrogen 49 mg/dl (9-20); Carbon Dioxide 22 mmol/L (22-30); Chloride 100 mmol/L (98-107); Estimated Creatinine Clearance 22 ml/min; Glucose 80 mg/dl (70-99); Potassium 4.9 mmol/L (3.5-5.1); Sodium 139 mmol/L (135-145); Total Protein 6.4 g/dl (6.3-8.2); eGFR 24.11
[2023-12-06 08:26] LABS: Hematocrit 34.8 % (39.0-52.0); Hemoglobin 11.7 g/dL (13.0-18.0); Mean Corp Hgb Conc. 33.6 g/dL (33.0-37.0); Mean Corpuscular Hgb 30.2 pg (27.0-31.0); Mean Corpuscular Volume 89.7 fL (80.0-94.0); Mean Platelet Volume 13.3 fL (7.4-10.4); Platelet Count 111 10^3/uL (130-400); Red Blood Cell Count 3.88 10^6/uL (4.70-6.10); Red Cell Dist. Width 15.6 % (11.5-14.5); White Blood Cell Count 20.7 10^3/uL (4.8-10.8)
--- NOTE | 2023-12-06 08:28 | W.PN.HOSP.TC ---
Today's Communication/Plan
-
see bold. Still awaiting MRI.
Assessment / Plan
Assessment / Plan
Gen: NAD, AAOx3.
Eyes: EOMI, PERRLA, no scleral icterus.
Neck: supple.
CV: RRR, +S1/S2, no m/r/g.
Resp: CTAB
Abd: +BS, soft, NT to light palpation, ND
Skin: No rashes.
Neuro: CN 2-12 intact, non-focal.
Psych: Normal mood and affect.
Abd U/S: Status post cholecystectomy with mild intrahepatic and extrahepatic biliary ductal dilatation. The common duct measures up to 12 mm, previously measuring up to 8 mm. This may be related to postcholecystectomy state and advanced age, but
given interval increase since 2020, underlying distal obstruction or stricture is possible. If clinically indicated, MRCP could be performed.
Abdominal Pain and Transaminitis/Pancreatitis, high clinical concern for CBD Obstruction:
-with AG met acidosis due to lactic acidosis
-GI following
-Check MRI Abd with MRCP (ordered 12/04/23 @ 1950)
-LFTs and Lipase improving
-Allow clear liquids
-cont LR but decrease to 75cc/hr
-Continue Cefepime/Flagyl
Other problems:
Hx Esophageal Stricture: Patient able to tolerated liquids at present time. GI following. Continue Protonix IV.
Chronic HFpEF: Question if pt actually has this diagnosis as it is not listed in the problem list from his outpt cardiology note (which I personally reviewed). Home Lasix currently on hold. Daily wts, I/Os
Paroxysmal Atrial Fibrillation: Holding Eliquis. Continue Metoprolol/Verapamil.
Essential Hypertension: Continue Metoprolol/Verapamil/clonidine patch
DM2: Cont Lantus 10/SSI/accuchecks
CKD4: Cr at baseline
COPD, not in acute exacerbation: cont Duonebs
Pt's daughter updated at bedside
DNR/SCDs until able to resume Eliquis
Anticipated Discharge: 24 - 48 hours
Subjective/Interval History
-
Date of Service: December 06, 2023
Objective Data
-
Labs:
Laboratory Results
12/06/23
06:33
WBC 20.7 H
Hgb 11.7 L
Hct 34.8 L
Plt Count 111 L
Sodium 139
Potassium 4.9
Chloride 100
Carbon Dioxide 22
BUN 49 H
Creatinine 2.5 H
Glucose 80
Calcium 9.0
Total Bilirubin 4.0 H
AST 226 H
ALT 192 H
Alkaline Phosphatase 247 H
Vital Signs:
Vital Signs
Temp Pulse Resp BP Pulse Ox
98.3 F 67 17 125/64 93
12/06/23 03:48 12/06/23 03:48 12/06/23 03:48 12/06/23 03:48 12/06/23 03:48
I&O
12/05/23 12/06/23 12/07/23
06:59 06:59 06:59
Intake Total 1393 / 1393 4560 / 4560
Output Total 500 / 500 700 / 700
Balance 893 / 893 3860 / 3860
--- NOTE | 2023-12-06 08:40 | W.PN.GI.CBS2 ---
Today's Communication / Plan
-
repeat lactate. Monitor kidney function. f/u MRI/MRCP
Assessment / Plan
-
Chadwick Hudson is an 88 y.o. male w/ pmhx afib on eliquis (last dose 9/5 PM), DM2, HTN, COPD, gout, CKD, hx of esophageal stricture s/p dilation (01/2023) who presents with right upper quadrant abdominal discomfort and dysphagia x1 day.
EGD in January [address] Lafleur demonstrated abnormal esophageal motility, benign appearing esophageal stenosis, dilated to 18 mm, paraesophageal hernia, nodule in stomach, bx unremarkable.
Reports no dysphagia since he was dilated, until the night prior to presentation, spitting up saliva, not tolerating liquid. However, upon initial evaluation, patient states that sensation cleared and was swallowing liquid without issue.
-->Labs returned with a leukocytosis of 17.1 and significantly elevated liver enzymes, Tbili 3.4, AST 533, ALT 248, Alk phos 396, >4,000.
-->Abdominal US: Liver appears homogenous in echotexture, no discrete lesions. Surgically absent gallbladder. Extra-hepatic common bile duct measuring 12 mm (previously measuring 8 mm in 2020) with mild intrahepatic ductal dilation, visualized
portions of the pancreas appear unremarkable
WBC 17.1 --> 17.9 --> 23.8 --> 20.7
Lipase >4,000 --> 1736
Tbili 3.4 --> 5.6 -->6 -->4
Dbili 4.8
AST 533 --> 309--> 305 --> 226
ALT 248 --> 226--> 211--> 192
Alk phos 396 --> 279--> 211--> 192
Lactate 4.4 --> 3.3 --> 4.2 --> 4.4
CO2 21 --> 14--> 18 --> 22
K 4.1 --> 5.3--> 4.4 --> 4.9
BUN 41 --> 37; Cr. 2.0 --> 2.4 --> 2.5
#Abdominal pain w/ elevated LFTs and elevated lipase meets diagnostic criteria for acute pancreatitis w/ hospital course c/b PORFIRIO with metabolic lactic acidosis
-LR @ 150 cc/hr
-hx of cholecystectomy
-he is afebrile, but leukocytosis and elevated lactate; clinically, he is nontoxic appearing with only mild discomfort on exam, remains afebrile; repeat lactate now
-BCx prelim, NGTD; started on cefepime/flagyl (day 3)
-abdominal US with interval increase in extrahepatic CBD dilation to 12mm, previously 8 mm in 2020; MRI/MRCP pending
-acidosis is improving but Cr. slightly worse-- recommend holding nephrotoxic agents; given additional bolus of 250 cc LR yesterday, hx of HF so need to be cautious
#Dysphagia-- known esophageal stricture as well as abnormal motility, previously dilated in 01/2023
-initial concerns for food impaction, now not having any issues, no clinical concern for impaction at this time
-nonurgent EGD-depending on clinical course, inpatient vs. outpatient
-c/w PPI
Subjective
Subjective
Date of Service: December 06, 2023
Patient seen in follow-up. Reports minimal RUQ pain, slept well. Remains afebrile. MRI/MRCP pending.
Objective
Data Reviewed
Laboratory Data:
Laboratory Results
12/06/23 06:33
12/06/23 06:33
Laboratory Results
PT 17.6 Sec (11.4-14.6) H 12/04/23 12:38
INR 1.47 12/04/23 12:38
APTT 27.1 Sec (23.4-35.0) 12/04/23 12:38
Magnesium 1.5 mg/dl (1.6-2.3) L 12/05/23 06:50
Total Bilirubin 4.0 mg/dl (0.2-1.3) H 12/06/23 06:33
AST 226 U/L (17-59) H 12/06/23 06:33
ALT 192 U/L (0-50) H 12/06/23 06:33
Alkaline Phosphatase 247 U/L (38-126) H 12/06/23 06:33
Lipase 1736 U/L (23-300) H* 12/05/23 06:50
Vital Signs and I&O:
Vital Signs
Temp Pulse Resp BP Pulse Ox
98.3 F 67 17 125/64 93
12/06/23 03:48 12/06/23 03:48 12/06/23 03:48 12/06/23 03:48 12/06/23 03:48
I&O
12/05/23 12/06/23 12/07/23
06:59 06:59 06:59
Intake Total 1393 / 1393 4560 / 4560
Output Total 500 / 500 700 / 700
Balance 893 / 893 3860 / 3860
Physical Exam
Physical Exam
GEN: Nontoxic appearing, comfortable
HEENT: +scleral icterus
Abd: Soft, nondistended; TTP in RUQ of abdomen, no rebound or guarding
[2023-12-06 09:56] LABS: Lipase 146 U/L (23-300)
[2023-12-06 11:54] LABS: Glucose - Point of Care 69 mg/dl (70-99)
[2023-12-06 13:13] LABS: Glucose - Point of Care 118 mg/dl (70-99)
[2023-12-06 16:09] LABS: Glucose - Point of Care 94 mg/dl (70-99)
[2023-12-06 21:41] LABS: Glucose - Point of Care 69 mg/dl (70-99)
[2023-12-06 22:06] LABS: Glucose - Point of Care 74 mg/dl (70-99)
[2023-12-07] VITALS (12 sets, daily range): BP systolic 104–142; BP diastolic 60–79; BMI 28.1
[2023-12-07 00:11] LABS: Glucose - Point of Care 88 mg/dl (70-99)
[2023-12-07] MEDS: FLAGYL 500 MG 100 IV ×2 (00:47→08:14)
[2023-12-07] MEDS: FLUSH (NSS) 2 FLUSH IV (00:48)
[2023-12-07] MEDS: LANTUS SC (01:41)
[2023-12-07] MEDS: LANTUS 0.05 UNITS SC (01:42)
[2023-12-07 02:11] LABS: Glucose - Point of Care 79 mg/dl (70-99)
[2023-12-07 03:01] LABS: Glucose - Point of Care 79 mg/dl (70-99)
[2023-12-07] MEDS: LR 1000 IV (06:13)
--- NOTE | 2023-12-07 06:26 | PTCARENOTE ---
@0610; found pt sitting on side of bed with IV pulled out and tele wires removed . Pt at first did not know where he was.Pt then was able to put the pieces together and realized he was in the hospital.Pt stated,'I think I was dreaming'.
[2023-12-07 06:49] LABS: Glucose - Point of Care 81 mg/dl (70-99)
[2023-12-07] MEDS: CALAN EXTENDED RELEASE 240 MG PO ×2 (08:21→20:03)
[2023-12-07] MEDS: LOPRESSOR 50 MG PO ×2 (08:21→20:11)
[2023-12-07] MEDS: NSS (PRESERVATIVE FREE) 10 ML IV (08:22)
[2023-12-07] MEDS: PROTONIX IV 40 MG IV (08:22)
[2023-12-07] MEDS: NOVOLOG FLEXPEN-MODERATE RESISTANCE SC ×3 (08:36→16:57)
[2023-12-07] MEDS: MAXIPIME 1000 MG IV ×2 (10:18→20:02)
[2023-12-07] MEDS: STERILE WATER FOR INJECTION 10 ML IV ×2 (10:18→20:02)
[2023-12-07] MEDS: LR IV (10:20)
[2023-12-07 11:11] LABS: Hematocrit 34.5 % (39.0-52.0); Hemoglobin 12.4 g/dL (13.0-18.0); Mean Corp Hgb Conc. 35.9 g/dL (33.0-37.0); Mean Corpuscular Hgb 30.6 pg (27.0-31.0); Mean Corpuscular Volume 85.2 fL (80.0-94.0); Mean Platelet Volume 13.6 fL (7.4-10.4); Platelet Count 119 10^3/uL (130-400); Red Blood Cell Count 4.05 10^6/uL (4.70-6.10)
[2023-12-07 12:13] LABS: Glucose - Point of Care 75 mg/dl (70-99)
--- NOTE | 2023-12-07 12:32 | W.PN.HOSP.TC ---
Today's Communication/Plan
-
cont empiric abx
anticipate ERCP
Holding Eliquis, Insulin
IVF PRN
Assessment / Plan
Assessment / Plan
Gen: NAD, AAOx3.
Eyes: EOMI, PERRLA, no scleral icterus.
Neck: supple.
CV: RRR, +S1/S2, no m/r/g.
Resp: CTAB
Abd: +BS, soft, NT to light palpation, ND
Skin: No rashes.
Neuro: CN 2-12 intact, non-focal.
Psych: Normal mood and affect.
Abd U/S: Status post cholecystectomy with mild intrahepatic and extrahepatic biliary ductal dilatation. The common duct measures up to 12 mm, previously measuring up to 8 mm. This may be related to postcholecystectomy state and advanced age, but
given interval increase since 2020, underlying distal obstruction or stricture is possible. If clinically indicated, MRCP could be performed.
#Abdominal Pain
#Transaminitis
#Pancreatitis
2/2 to # Choledocholithiasis
#SIRS with most likely noninfectious cause, POA
with #AG met acidosis due to #lactic acidosis, resolved
-LFTs and Lipase improving
-Allow clear liquids until GI plan for ERCP
-Anticipate ERCP
-IVF PRN
-Continue Cefepime/Flagyl
Other problems:
Hx Esophageal Stricture: Patient able to tolerated liquids at present time. GI following. Continue Protonix IV.
Chronic HFpEF: Question if pt actually has this diagnosis as it is not listed in the problem list from his outpt cardiology note (which I personally reviewed). Home Lasix currently on hold. Daily wts, I/Os
Paroxysmal Atrial Fibrillation: Holding Eliquis for procedure; Continue Metoprolol/Verapamil.
Essential Hypertension: Continue Metoprolol/Verapamil/clonidine patch
DM2: holding insulin
CKD4: Cr at baseline
COPD, not in acute exacerbation: cont Duonebs
Pt's daughter updated at bedside
DNR/SCDs until able to resume Eliquis
Total time spent on today's encounter was 50 minutes which included time spent in counseling the patient/family regarding diagnosis and treatment plan as listed above, goals of care, and symptom management. Case was discussed with nursing staff,
specialists, and care coordinators/case management. All labs and imaging personally reviewed by me. Remainder the time spent in detailed review of previous records, lab data, imaging, and other medical provider documentation.
Anticipated Discharge: 24 - 48 hours
Subjective/Interval History
-
Date of Service: December 07, 2023
No acute events overnight, MRCP consistent with choledocholithiasis, mild uncomplicated duodenitis.
Objective Data
-
Labs:
Laboratory Results
12/07/23 12/07/23
10:36 11:26
WBC 17.0 H
Hgb 12.4 L
Hct 34.5 L
Plt Count 119 L
Sodium Cancelled Pending
Potassium Cancelled Pending
Chloride Cancelled Pending
Carbon Dioxide Cancelled Pending
BUN Cancelled Pending
Creatinine Cancelled Pending
Glucose Cancelled Pending
Calcium Cancelled Pending
Total Bilirubin Cancelled Pending
AST Cancelled Pending
ALT Cancelled Pending
Alkaline Phosphatase Cancelled Pending
Vital Signs:
Vital Signs
Temp Pulse Resp BP Pulse Ox
97.9 F 65 18 131/60 97
12/07/23 11:30 12/07/23 11:30 12/07/23 11:30 12/07/23 11:30 12/07/23 11:30
I&O
12/06/23 12/07/23 12/08/23
06:59 06:59 06:59
Intake Total 4560 / 4560 4305 / 4305 225 / 225
Output Total 700 / 700 650 / 650 325 / 325
Balance 3860 / 3860 3655 / 3275 -100 / -100
Review of Systems
-
History Source: Patient
All other systems: Not reviewed unless documented
Data Reviewed
-
Diagnostic Radiology: Image personally visualized and interpreted and Report Reviewed by me
Ultrasound: Report Reviewed by me
MRI: Image personally visualized and interpreted and Report Reviewed by me
Labs: Labs Reviewed by me
[2023-12-07 16:30] LABS: Glucose - Point of Care 67 mg/dl (70-99)
[2023-12-07] MEDS: DEXTROSE 50% SYRINGE 12.5 GRAMS IV (16:52)
--- NOTE | 2023-12-07 17:15 | PTCARENOTE ---
Patient taken to GI lab before RN could re-check POC glucose post IV dextrose- primary RN relayed this to receiving GI laborer heading. GI laborer heading said they will re-check pt's glucose down in lab and keep monitoring during procedure.
[2023-12-07 17:19] LABS: Glucose - Point of Care 86 mg/dl (70-99)
[2023-12-07 18:20] LABS: Glucose - Point of Care 84 mg/dl (70-99)
--- NOTE | 2023-12-07 19:00 | PTCARENOTE ---
Received pt from PACU
[2023-12-07] MEDS: FLAGYL 500 MG IV (20:00)
[2023-12-07 21:45] LABS: Glucose - Point of Care 138 mg/dl (70-99)
[2023-12-07] MEDS: LANTUS 0.1 UNITS SC (22:53)
[2023-12-08] MEDS: FLAGYL 500 MG 100 IV ×3 (00:09→15:39)
--- NOTE | 2023-12-08 01:22 | PTCARENOTE ---
Pt noted to have a change in rhythm via telemetry. HR in 50s, appears to be 2nd degree AV block/Mobitz 1. EKG obtained to confirm [employer]ATOR covering house contacted via TT to make aware of change.
[2023-12-08 03:00] VITALS: BP 125/65
[2023-12-08 03:31] LABS: Glucose - Point of Care 151 mg/dl (70-99)
--- NOTE | 2023-12-08 04:23 | W.PN.UPDATE ---
Update Note
Progress Note Update
Patient has a change the heart rhythm on tele from 1st degree of heart block to 2nd degree, asymptomatic. EKG shows 2nd degree A-V block (Mobitz I).
Patient with no apparent distress, denied chest pain or SOB, denied dizziness, light- headedness. Hr between 57-61, bp 125/65. Will continue monitoring for symptoms and consult cardiology as needed.
[2023-12-08 06:00] VITALS: BMI 28.5
[2023-12-08] MEDS: STERILE WATER FOR INJECTION 10 ML IV ×2 (06:11→17:37)
[2023-12-08] MEDS: MAXIPIME 1000 MG IV ×2 (06:11→17:38)
[2023-12-08 08:00] VITALS: BP 136/74
[2023-12-08 08:07] LABS: Glucose - Point of Care 125 mg/dl (70-99)
--- NOTE | 2023-12-08 08:43 | W.PN.GI.CBS2 ---
Addendum entered and electronically signed by Quang Cross, 12/08/23 14:55:
ADDENDUM: (For Billing Query generated from today) - Patient was found to have 'Obstructing Stones.' See additional recommendations as outlined below.
Original Note:
Today's Communication / Plan
-
S/p ERCP 12/07/23 with removal of two stones, improving clinically with improving pancreatitis. Continue empiric IV abx and hold a/c given recent sphincterotomy. See rest of plan as outlined below for complete recommendations.
Assessment / Plan
-
Chadwick Hudson is an 88 y.o. male w/ pmhx afib on eliquis (last dose 12/02 PM), DM2, HTN, COPD, gout, CKD, hx of esophageal stricture s/p dilation (01/2023) who presents with right upper quadrant abdominal discomfort and dysphagia x1 day.
EGD in January [address] Lafleur demonstrated abnormal esophageal motility, benign appearing esophageal stenosis, dilated to 18 mm, paraesophageal hernia, nodule in stomach, bx unremarkable.
Reports no dysphagia since he was dilated, until the night prior to presentation, spitting up saliva, not tolerating liquid. However, upon initial evaluation, patient states that sensation cleared and was swallowing liquid without issue.
-->Labs returned with a leukocytosis of 17.1 and significantly elevated liver enzymes, Tbili 3.4, AST 533, ALT 248, Alk phos 396, >4,000.
-->Abdominal US: Liver appears homogenous in echotexture, no discrete lesions. Surgically absent gallbladder. Extra-hepatic common bile duct measuring 12 mm (previously measuring 8 mm in 2020) with mild intrahepatic ductal dilation, visualized
portions of the pancreas appear unremarkable
WBC 17.1 --> 17.9 --> 23.8 --> 20.7
Lipase >4,000 --> 1736
Tbili 3.4 --> 5.6 -->6 -->4
Dbili 4.8
AST 533 --> 309--> 305 --> 226
ALT 248 --> 226--> 211--> 192
Alk phos 396 --> 279--> 211--> 192
Lactate 4.4 --> 3.3 --> 4.2 --> 4.4
CO2 21 --> 14--> 18 --> 22
K 4.1 --> 5.3--> 4.4 --> 4.9
BUN 41 --> 37; Cr. 2.0 --> 2.4 --> 2.5
#Biliary, Acute Pancreatitis
#Choledocholithiasis (s/p ERCP 12/07/23)
Abdominal pain w/ elevated LFTs and elevated lipase meets diagnostic criteria for acute pancreatitis w/ hospital course c/b PORFIRIO with metabolic lactic acidosis. Concern for biliary pancreatitis with MRI/MRCP 12/06/23 revealing two stones (7 mm) within
distal CBD with associated biliary ductal dilatation. S/p ERCP 12/07/23 found to have choledocholithiasis, managed with biliary sphincterotomy and balloon extraction of two medium-sized stones
- Tolerating CLD, may ADAT
- Monitor blood cultures, currently NGTD
- Continue IV abx, favor empiric 7 day course
- Follow-up AM labs
- Continue to hold eliquis, may restart in 48 hrs given recent sphincterotomy
- Hx of prior CCY, now ERCP for choledocholithiasis with ES
- Rest of care per primary team
#Dysphagia
Prior known esophageal stricture as well as abnormal motility, previously dilated in 01/2023. Initial concerns for food impaction, now not having any issues, no clinical concern for impaction at this time
- Continue empiric PPI
- No plans for EGD at this time as without any impaction or significant resistance during passage of side-viewing duodenoscope
- Will need outpatient GI follow-up after discharge
#Adrenal Mass
Seen on recent MRI/MRCP 12/06/23 revealing and indeterminate 1.8 cm R adrenal gland mass
- Defer to primary team regarding further w/u. MRI recommending dedicated CT with adrenal protocol for further evaluation
Subjective
Subjective
Date of Service: December 08, 2023
- S/p ERCP 12/07/23: Found to have choledocholithiasis, managed with biliary sphincterotomy and balloon extraction of two stones
- AM Labs pending
- Otherwise, no acute events overnight
Feeling well, resting comfortable in bed. Denies any epigastric pain, nausea/vomiting. Tolerated CLD without difficulty. No fevers, chills, night sweats or other constitutional symptoms.
Objective
Data Reviewed
Laboratory Data:
Laboratory Results
PT 17.6 Sec (11.4-14.6) H 12/04/23 12:38
INR 1.47 12/04/23 12:38
APTT 27.1 Sec (23.4-35.0) 12/04/23 12:38
Magnesium 1.5 mg/dl (1.6-2.3) L 12/05/23 06:50
Total Bilirubin Cancelled 12/07/23 11:26
AST Cancelled 12/07/23 11:26
ALT Cancelled 12/07/23 11:26
Alkaline Phosphatase Cancelled 12/07/23 11:26
Lipase 146 U/L (23-300) 12/06/23 06:33
Vital Signs and I&O:
Vital Signs
Temp Pulse Resp BP Pulse Ox
97.4 F 68 18 136/74 93
12/08/23 08:00 12/08/23 08:00 12/08/23 08:00 12/08/23 08:00 12/08/23 08:00
I&O
12/07/23 12/08/23 12/09/23
06:59 06:59 06:59
Intake Total 4305 / 4305 1225 / 1225
Output Total 650 / 650 1025 / 1025
Balance 3655 / 3655 200 / 200
Physical Exam
Physical Exam
HEENT: Anicteric and Moist mucous membranes
Cardiology: Normal Sinus Rhythm
Pulmonary: Other (Normal WOB on room air)
GI: Soft, Non Distended and Non Tender
Extremities: Warm
Neuro: Non Focal
[2023-12-08] MEDS: NOVOLOG FLEXPEN-MODERATE RESISTANCE SC (08:54)
[2023-12-08] MEDS: PROTONIX IV 40 MG IV (09:03)
[2023-12-08] MEDS: LOPRESSOR 50 MG PO (09:03)
[2023-12-08] MEDS: CALAN EXTENDED RELEASE 240 MG PO (09:03)
[2023-12-08] MEDS: NSS (PRESERVATIVE FREE) 10 ML IV (09:04)
[2023-12-08 10:36] LABS: Hematocrit 33.6 % (39.0-52.0); Hemoglobin 12.1 g/dL (13.0-18.0); Mean Corpuscular Hgb 30.6 pg (27.0-31.0); Mean Corpuscular Volume 84.8 fL (80.0-94.0); Mean Platelet Volume 12.8 fL (7.4-10.4); Platelet Count 112 10^3/uL (130-400); Red Blood Cell Count 3.96 10^6/uL (4.70-6.10); Red Cell Dist. Width 15.2 % (11.5-14.5)
[2023-12-08 10:54] LABS: ALT (SGPT) 95 U/L (0-50); AST (SGOT) 77 U/L (17-59); Albumin 3.1 g/dl (3.5-5.0); Alkaline Phosphatase 229 U/L (38-126); Blood Urea Nitrogen 50 mg/dl (9-20); Calcium 8.7 mg/dl (8.4-10.2); Carbon Dioxide 19 mmol/L (22-30); Chloride 100 mmol/L (98-107); Estimated Creatinine Clearance 28 ml/min; Glucose 138 mg/dl (70-99); Magnesium 1.9 mg/dl (1.6-2.3); Sodium 134 mmol/L (135-145); Total Bilirubin 2.4 mg/dl (0.2-1.3); Total Protein 6.3 g/dl (6.3-8.2); eGFR 31.51
[2023-12-08 11:18] VITALS: BP 124/79
[2023-12-08 11:32] LABS: Glucose - Point of Care 160 mg/dl (70-99)
--- NOTE | 2023-12-08 13:01 | W.PN.HOSP.TC ---
Addendum entered and electronically signed by Syed Brush MD 12/09/23 17:47:
CKD 4 only
Addendum entered and electronically signed by Syed Brush MD 12/09/23 16:41:
[id number]
Addendum entered and electronically signed by Syed Brush MD 12/08/23 13:25:
DC on cefdinir and flagyl to complete 7 day course total of abx; - 3 additional days rxed. Rx on ppi. Restart Eliquis on evening of 12/08. CMP in 1 week with PCP/GI. Follow GI, PCP outpatient. DC if tolerating low fat diet
More than 30 minutes spent in discharge including
Final examination of the patient
Summarizing hospital stay
Instructions for continuing care to all relevant caregivers
Preparation of discharge records, prescriptions, and referral forms
Total time spent (35 in minutes):
Original Note:
Today's Communication/Plan
-
CLD, ADAT
cont abx
start back eliquis tomorrow evening
Assessment / Plan
Assessment / Plan
Gen: NAD, AAOx3.
Eyes: EOMI, PERRLA, no scleral icterus.
Neck: supple.
CV: RRR, +S1/S2, no m/r/g.
Resp: CTAB
Abd: +BS, soft, NT to light palpation, ND
Skin: No rashes.
Neuro: CN 2-12 intact, non-focal.
Psych: Normal mood and affect.
Abd U/S: Status post cholecystectomy with mild intrahepatic and extrahepatic biliary ductal dilatation. The common duct measures up to 12 mm, previously measuring up to 8 mm. This may be related to postcholecystectomy state and advanced age, but
given interval increase since 2020, underlying distal obstruction or stricture is possible. If clinically indicated, MRCP could be performed.
#Abdominal Pain
#Transaminitis
#Pancreatitis
2/2 to # Choledocholithiasis
#SIRS with most likely noninfectious cause, POA
with #AG met acidosis due to #lactic acidosis, resolved
-ERCP 12/07/23 found to have choledocholithiasis, managed with biliary sphincterotomy and balloon extraction of two medium-sized stones
-LFTs and Lipase improving
CLD, advance to LFD as tolerated
-IVF PRN
-Continue Cefepime/Flagyl - 7 days of abx therapy
-trend lfts
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
-F/u nonemergent basis: dedicated adrenal protocol CT, to be ordered as CT Abdomen with and without contrast.
#Hyponatremia
-mild
Other problems:
Hx Esophageal Stricture: Patient able to tolerated liquids at present time. GI following. Continue Protonix IV. F/u GI outpatient
Chronic HFpEF: Question if pt actually has this diagnosis as it is not listed in the problem list from his outpt cardiology note (which I personally reviewed). Home Lasix currently on hold. Daily wts, I/Os
Paroxysmal Atrial Fibrillation: Holding Eliquis for procedure; Continue Metoprolol/Verapamil.
Essential Hypertension: Continue Metoprolol/Verapamil/clonidine patch
DM2: holding insulin
CKD4: Cr at baseline
COPD, not in acute exacerbation: cont Duonebs
Pt's daughter updated at bedside
DNR/SCDs until able to resume Eliquis
Total time spent on today's encounter was 50 minutes which included time spent in counseling the patient/family regarding diagnosis and treatment plan as listed above, goals of care, and symptom management. Case was discussed with nursing staff,
specialists, and care coordinators/case management. All labs and imaging personally reviewed by me. Remainder the time spent in detailed review of previous records, lab data, imaging, and other medical provider documentation.
Anticipated Discharge: 24 - 48 hours
Subjective/Interval History
-
Date of Service: December 08, 2023
no acute events, pain has resolved
Objective Data
-
Labs:
Laboratory Results
12/08/23
10:17
WBC 10.0
Hgb 12.1 L
Hct 33.6 L
Plt Count 112 L
Sodium 134 L
Potassium 5.0
Chloride 100
Carbon Dioxide 19 L
BUN 50 H
Creatinine 2.0 H
Glucose 138 H
Calcium 8.7
Total Bilirubin 2.4 H
AST 77 H
ALT 95 H
Alkaline Phosphatase 229 H
Vital Signs:
Vital Signs
Temp Pulse Resp BP Pulse Ox
97.7 F 68 18 124/79 99
12/08/23 11:18 12/08/23 11:18 12/08/23 11:18 12/08/23 11:18 12/08/23 11:18
I&O
12/07/23 12/08/23 12/09/23
06:59 06:59 06:59
Intake Total 4305 / 4305 1225 / 1225
Output Total 650 / 650 1025 / 1025
Balance 3655 / 3655 200 / 200
Review of Systems
-
History Source: Patient
All other systems: Not reviewed unless documented
Data Reviewed
-
Diagnostic Radiology: Image personally visualized and interpreted and Report Reviewed by me
Ultrasound: Report Reviewed by me
MRI: Image personally visualized and interpreted and Report Reviewed by me
Labs: Labs Reviewed by me
[2023-12-08] MEDS: NOVOLOG FLEXPEN-MODERATE RESISTANCE 1 UNITS SC ×2 (13:02→17:30)
--- NOTE | 2023-12-08 13:24 | W.DS.TRANS ---
DC Summary - [employer]
-
Discharge Instructions:
Sleep Apnea Risk Low
Discharge Diagnosis/Procedures
#Abdominal Pain
#Transaminitis
#Pancreatitis
2/2 to # Choledocholithiasis
#SIRS with most likely noninfectious cause, POA
with #AG met acidosis due to #lactic acidosis,
resolved
Diet Low Fat,Diabetic, Carb Controlled
Activity As tolerated
Blood Work cmp in 1 week with PCP/GI
Others Tests Indeterminate 1.8 cm right adrenal gland mass.
This can be further evaluated on a nonemergent
basis with a dedicated adrenal protocol CT, to
be ordered as CT Abdomen with and without
contrast.
Instructions:
Stand-Alone Forms:
Changes to Home Medications: Yes
Discharge Medications:
DC Medications w/original date entered in [facility]
albuterol sulfate 90 mcg/actuation aerosol inhaler (Proventil HFA) 1 puff inhalation R QIDPRN PRN sob 10/16/17
atorvastatin 80 mg tablet 40 mg PO DAILY High Cholesterol 10/16/17
cholecalciferol (vitamin D3) 50 mcg (2,000 unit) tablet 2,000 unit PO DAILY Supplement 10/16/17
cinnamon bark 500 mg capsule (Cinnamon) 1,000 mg PO DAILY Supplement 10/16/17
clonidine 0.3 mg/24 hr weekly transdermal patch 0.3 mg transdermal WE Blood Pressure 10/16/17
insulin aspar prt-insulin aspart 100 unit/mL (70-30) subcutaneous soln (Novolog Mix 70-30 U-100 Insuln) 12 units SC QPM diabetes 10/16/17
insulin aspar prt-insulin aspart 100 unit/mL (70-30) subcutaneous soln (Novolog Mix 70-30 U-100 Insuln) 24 units SC DAILY diabetes 10/16/17
metoprolol tartrate 50 mg tablet 50 mg PO BID Blood Pressure 10/16/17
omeprazole 20 mg capsule,delayed release 20 mg PO DAILY Gastrointestinal Issue 10/16/17
verapamil 240 mg tablet,extended release 240 mg PO BID Blood Pressure/AFib 10/16/17
apixaban 2.5 mg tablet (Eliquis) 2.5 mg PO BID Blood Clot Prevention/Tx 12/04/23
furosemide 20 mg tablet (Lasix) 20 mg PO DAILY Fluid Retention/Swelling 12/04/23
oxycodone-acetaminophen 5 mg-325 mg tablet 1 tab PO Q6HPRN PRN severe pain 12/04/23
cefdinir 300 mg capsule 300 mg PO BID 3 days #6 caps 12/08/23
metronidazole 500 mg tablet 500 mg PO Q12H 3 days #6 tabs 12/08/23
pantoprazole 40 mg tablet,delayed release 40 mg PO DAILY #30 tabs 12/08/23
Home Medication Changes
cefdinir 300 mg capsule 300 mg PO BID 3 days #6 caps 12/08/23
metronidazole 500 mg tablet 500 mg PO Q12H 3 days #6 tabs 12/08/23
pantoprazole 40 mg tablet,delayed release 40 mg PO DAILY #30 tabs 12/08/23
Pending Results: No
--- NOTE | 2023-12-08 13:46 | CM ---
Received message from attending who stated that patient can be discharged. Met with patient and his family. He is agreeable to going home. Discussed with PT, patient safe for home. He is agreeable to [facility] and wants [facility]. Referral made. IMM reviewed,
signed and is on chart.
Plan: Case management will continue to follow and assist with discharge planning. Home with [facility]. Family will transport.
--- NOTE | 2023-12-08 14:12 | PN.CDI ---
CDI
- -
CDI:
Physician Documentation Request
Admit Date: 12/04/23 14:17
Dear Doctor Tay,
Patient admitted for acute biliary pancreatitis s/p MRI/MRCP that revealed two stones with associated biliary ductal dilation. 12/06 ERCP found choledocholithiasis, and was managed with biliary sphincterotomy and bone extraction of the stones.
Could you please clarify:
Stones were obstructing
Stones were not obstructing
Other
Use of terms such as suspected, likely, concern for, or probable (associated with a specific diagnosis that is being evaluated, monitored, or treated as if it exists) are acceptable and can be coded in the inpatient setting, when documented at the
time of discharge.
Thank you,
Brenda Rodriguez RN, BSN
CDI Specialist
tiger text
Please use your independent medical judgment in providing your response.
--- NOTE | 2023-12-08 14:20 | PN.CDI ---
CDI
- -
CDI:
Physician Documentation Request
Admit Date: 12/04/23 14:17
Dear Doctor Gonsalo,
Patient is admitted with pancreatitis secondary to choledocholithiasis. History of CKD.
Creatinine results:
Laboratory Tests
12/04/23 12/05/23 12/06/23
12:15 13:45 06:33
Creatinine 2.0 H 2.4 H 2.5 H
12/08/23
10:17
Creatinine 2.0 H
Could you please provide a diagnosis that supports the above lab abnormalities and additional evaluation/ monitoring:
PORFIRIO on CKD 4
CKD 4 only
Other
Criteria for PORFIRIO*
1 Increase in serum creatinine by > or = to 0.3 mg/dL (> or = to 26.5 micromol/L) within 48 hours, OR
2 Increase in serum creatinine to > or = to 1.5 times baseline, which is known or presumed to have occurred within 7 days, OR
3 Urine volume < 0.5 nL/kg/hour for six hours
Use of terms such as suspected, likely, concern for, or probable (associated with a specific diagnosis that is being evaluated, monitored, or treated as if it exists) are acceptable and can be coded in the inpatient setting, when documented at the
time of discharge.
Thank you,
Brenda Rodriguez RN, BSN
CDI Specialist
tiger text
Please use your independent medical judgment in providing your response.
[2023-12-08 14:23] VITALS: BP 128/58; PULSE 66; O2SAT 97
--- NOTE | 2023-12-08 14:38 | VNURNOTE ---
Home Health Liaison spoke with patient to discuss [facility] nurse/therapy, visits, schedule and homebound status. Patient is agreeable and understands that visits at home will be 1-3 x per week to assess and teach medical management. Patient had to get
off phone abruptly but he is aware that [facility] will contact them for start of care in 1-2 days after discharge from .
[facility] referral completed in [facility].
[2023-12-08 15:30] VITALS: BP 135/69
[2023-12-08 17:30] LABS: Glucose - Point of Care 177 mg/dl (70-99)
== END 2023-12-08 18:32 | disposition home health service (06) | DRG 444 ==
LOC: 3 WEST ACU 14:17
PROVIDERS: Internal Medicine; Internal Medicine Gastroenterology; Nurse Practitioner Gerontology; Physician Assistant; Physician Assistant Medical; ADMITTING PHYSICIAN Hospitalist; ATTENDING PHYSICIAN Internal Medicine; CONSULT PHYSICIAN Internal Medicine; EMERGENCY PHYSICIAN Student in an Organized Health Care Education/Training Program; FAMILY PHYSICIAN Internal Medicine
PROC: 0FC98ZZ Extirpation of Matter from Common Bile Duct, Via Natural or Artificial Opening Endoscopic (ICD-10-PCS; 2023-12-07)
DX: K80.51 Calculus of bile duct without cholangitis or cholecystitis with obstruction (principal); K85.10 Biliary acute pancreatitis without necrosis or infection; E87.20 Acidosis, unspecified; I13.0 Hypertensive heart and chronic kidney disease with heart failure and stage 1 through stage 4 chronic kidney disease, or unspecified chronic kidney disease; I50.32 Chronic diastolic (congestive) heart failure; N18.4 Chronic kidney disease, stage 4 (severe); R65.10 Systemic inflammatory response syndrome (SIRS) of non-infectious origin without acute organ dysfunction; E87.1 Hypo-osmolality and hyponatremia; Z66 Do not resuscitate; I48.0 Paroxysmal atrial fibrillation; K29.80 Duodenitis without bleeding; E27.9 Disorder of adrenal gland, unspecified; I44.1 Atrioventricular block, second degree; J44.9 Chronic obstructive pulmonary disease, unspecified; E78.5 Hyperlipidemia, unspecified; E11.22 Type 2 diabetes mellitus with diabetic chronic kidney disease; K21.9 Gastro-esophageal reflux disease without esophagitis; K22.2 Esophageal obstruction; M10.9 Gout, unspecified; Z87.891 Personal history of nicotine dependence; Z88.0 Allergy status to penicillin; Z90.49 Acquired absence of other specified parts of digestive tract; Z79.84 Long term (current) use of oral hypoglycemic drugs; Z79.4 Long term (current) use of insulin; Z79.01 Long term (current) use of anticoagulants
CPT/HCPCS: 71046; 74183; 74330; 76000; 76700; 80053; 82248; 82962; 83036; 83605; 83690; 83735; 84300; 85025; 85027; 85610; 85730; 86704; 86803; 87040; 87340; 93005; 96374; 97116; 97161; 97166; 97530; 97535; 99285; A9575; C1769

== ENCOUNTER 2023-12-20 13:20 | Inpatient (IN) | payer MEDICARE, SELFPAY ==
[2023-12-18] VITALS (14 sets, daily range): BP systolic 99–188; BP diastolic 63–100; PULSE 85–93; BMI 26.2; BMI 25.6
[2023-12-18 16:58] LABS: % Basophils 0.4 % (0-2); % Eosinophils 0.6 % (0-6); % Immature Granulocytes 0.2 % (0-0.5); % Lymphocytes 39.8 % (20.5-51.1); % Monocytes 11.6 % (1.7-9.3); % Neutrophils 47.4 % (42.2-75.2); Absolute Lymphocytes 2.2 10^3/uL (1.2-3.4); Absolute Monocytes 0.6 10^3/uL (0.1-0.6); Absolute Neutrophils 2.6 10^3/uL (1.4-6.5); Hematocrit 34.2 % (39.0-52.0); Hemoglobin 11.8 g/dL (13.0-18.0); Mean Corp Hgb Conc. 34.5 g/dL (33.0-37.0); Mean Corpuscular Hgb 29.9 pg (27.0-31.0); Mean Corpuscular Volume 86.6 fL (80.0-94.0); Mean Platelet Volume 12.3 fL (7.4-10.4); Nucleated Red Blood Cells % 0 % (-); Platelet Count 135 10^3/uL (130-400); Red Blood Cell Count 3.95 10^6/uL (4.70-6.10); Red Cell Dist. Width 15.9 % (11.5-14.5); White Blood Cell Count 5.4 10^3/uL (4.8-10.8)
[2023-12-18 17:16] LABS: ALT (SGPT) 34 U/L (0-50); AST (SGOT) 54 U/L (17-59); Albumin 3.4 g/dl (3.5-5.0); Alkaline Phosphatase 178 U/L (38-126); Blood Urea Nitrogen 28 mg/dl (9-20); Calcium 8.8 mg/dl (8.4-10.2); Carbon Dioxide 21 mmol/L (22-30); Chloride 103 mmol/L (98-107); Glucose 147 mg/dl (70-99); Potassium 4.2 mmol/L (3.5-5.1); Sodium 138 mmol/L (135-145); Total Bilirubin 1.4 mg/dl (0.2-1.3); Total Protein 6.8 g/dl (6.3-8.2); eGFR 31.51
[2023-12-18 17:25] LABS: NT-proBNP 8200 pg/ml; Troponin I 0.063 ng/ml
--- NOTE | 2023-12-18 19:14 | ED.GENMED ---
History of Present Illness
General
Chief Complaint: Breathing Problem
Source: patient and family
Time Seen by Provider: 12/18/23 17:56
History of Present Illness
History of Present Illness:
88-year-old male who was recently here at the hospital and discharged about 10 days ago after an episode of gallstone pancreatitis. Patient was sent back due to feeling lightheaded and short of breath. Home nurse was concerned and sent him for
evaluation. Reportedly had an episode of hypotension. Patient is somewhat of a poor historian. Laying in bed he feels a bit better. Has felt a bit weak as well. No fevers. No abdominal pain. No chest pain. No back pain.
Past History
Past History
ED Past Medical History: Arrthythmia (Atrial fibrillation), HTN, IDDM and Other (gout, choledocholithiasis)
ED Past Surgical History: Cholecystectomy and Orthopedic
Social History
Personal:
Living: with family
Employment: Retired
Phy Exam
Physical Exam
Physical Exam:
CONSTITUTIONAL Patient alert and oriented to person, place and time. Well-appearing. Vital signs reviewed.
HEAD atraumatic, normocephalic.
EYES eyelids normal to inspection, Pupils equally round and reactive to light, Extraocular muscles intact, Conjunctiva normal, Sclera normal.
NECK normal range of motion, Trachea midline, no jugular venous distention.
RESPIRATORY CHEST No respiratory distress noted, Chest expansion equal, Bilateral breath sounds clear.
CARDIOVASCULAR regular rate and rhythm, Heart sounds normal.
Abdomen nontender
BACK normal inspection, no obvious deformities
UPPER EXTREMITY range of motion normal, Motor strength normal, no cyanosis, no edema.
LOWER EXTREMITY range of motion normal, Motor strength normal, no cyanosis, no edema.
NEURO Speech normal, No focal motor deficits, [place] coma scale 15, Memory normal, Cranial Nerves intact to screening exam.
SKIN skin warm, dry, and normal in color.
PSYCHIATRIC patient oriented to person place and time, Normal affect.
Scores
Heart Failure Risk
Heart Failure Risk Score: Yes
History of Stroke or TIA: No
History of intubation for respiratory distress: No
Heart rate on ED arrival >/= 110: No
SaO2 <90% on arrival on room air: No
HR >/=110 during 3min walk test (or too ill to perform test): No
ECG has acute ischemic changes: No
Urea >/=12mmol/L (BUN 33.6mg/dL): No
Serum CO2>/=35mmol/L: No
Troponin I or T elevated to IN Level (0.4mg/dL): No
NT-proBNP >/=5,000ng/L (5,000pg/ml): Yes
HF Risk Score: 1
Admission Status: MEDIUM RISK 5.1% Consider observation or discharge to home with homecare & f/u visit to PCP/Fruit Thinner Machine Operator, or SNF for treatment
Course
Orders/Labs/Results
Orders:
Orders
12/18/23 16:44
Electrocardiogram (*1) Urgent
Reason for Study: Shortness of Breath
EKG- Treatment ONCE
CR Chest - 2 Views Urgent
Comment:
Reason For Exam: SOB
12/18/23 16:50
Complete Blood Count/With Diff Urgent
NT-proBNP Urgent
Troponin I Urgent
12/18/23 16:51
Comprehensive Metabolic Panel Urgent
12/18/23 19:44
0.9% Sodium Chloride 250 ml [Nss] 250 ml IV BOLUS
12/18/23 20:40
Admit/Transfer Patient As Directed
Co-Sign Provider:
Level of Care: Observation services
Assign to:: Telemetry
Physician / Group: scott
Diagnosis: elevated trop
Reason for Telemetry: Arrhythmia
Date to Stop Telemetry: 12/21/23
Time to Stop Telemetry: 11:00
PRN Pain Medication Management As Directed
May give lesser potent ordered pain med per pt: Yes
preference::
Protocol:: Medication orders for pain may be administered in a
manner that supports deferring to patient preference
when the pt is:
- Requesting an ordered lesser potent pain medication.
Least to most potent pain medications are defined
as: acetaminophen < NSAID < tramadol < opioids
(morphine, oxycodone, hydromorphone).
- Requesting a lesser dose of the same medication IF
ORDERED.
- Requesting a less intrusive route of administration
if both routes are prescribed by the provider (PO <
IV).
12/18/23 20:42
Code Status As Directed
Resuscitation Status: Do not resuscitate
Reached after discussion with pt or family/Healthcare POA: Yes
DNR Bracelet Application ONCE
12/18/23 21:25
0.9% Sodium Chloride 1000 ml [Nss] 1,000 ml IV 60 mls/hr
Acetaminophen [Tylenol] 650 mg PO Q4HPRN PRN
Albuterol [ProAIR HFA INHALER] 1 puff INH R QIDPRN PRN
Dextrose 50%-Water [Dextrose 50% Syringe] 12.5 grams IV [id number] PRN
Glucagon [GlucaGen] 1 mg IM PRN PRN
12/18/23 21:25
Activity As Directed
Activity Level: As Tolerated
Bedside Glucose Monitoring As Directed
Frequency: AC&HS
Additional Instructions:: Change to q6h if pt on TPN, tube feeding or not eating
Intake/ Output As Directed
Frequency: Per unit guidelines
Vital Signs As Directed
Frequency: Per unit guidelines
Weight As Directed
Frequency: Daily
12/18/23 22:38
Troponin I Q6H
12/19/23 05:09
Complete Blood Count/No Diff IN AM
Troponin I Q6H
12/19/23 Breakfast
1800 calorie (15 carb) Diabetic
At Your Request: Full Participation
Does patient need a safe tray?: No
Occupational Therapy Consult [Ot Eval And Treat] IN AM
Physical Therapy Consult [Pt Eval And Treat] IN AM
Activity Level: As Tolerated
12/19/23 07:30
Insulin Aspart Corrective Low [Novolog Flexpen-Low Resistance] See Protocol SC AC
12/19/23 08:00
Apixaban [Eliquis] 2.5 mg PO BID
Atorvastatin [Lipitor] 40 mg PO DAILY
Insulin Aspart/Asp Protamine [Novolog Mix 70/30 Flexpen] 12 units SC DAILY
Metoprolol [Lopressor] 50 mg PO BID
Pantoprazole [Protonix] 40 mg PO DAILY
Verapamil Extended Release [[place] Extended Release] 240 mg PO BID
12/19/23 18:00
Insulin Aspart/Asp Protamine [Novolog Mix 70/30 Flexpen] 12 units SC QPM
12/21/23 11:00
DC Protocol for Telemetry ONCE
12/23/23 08:00
Clonidine [Fakqipwi-Mnp-1] 0.3 mg TRANSDERM WE
Abnormal Lab Results
12/18/23 12/18/23
16:50 16:51
RBC 3.95 L 10^6/uL
(4.70-6.10)
Hgb 11.8 L g/dL
(13.0-18.0)
Hct 34.2 L %
(39.0-52.0)
RDW 15.9 H %
(11.5-14.5)
MPV 12.3 H fL
(7.4-10.4)
Monocytes % 11.6 H %
(1.7-9.3)
Carbon Dioxide 21 L mmol/L
(22-30)
BUN 28 H mg/dl
(9-20)
Creatinine 2.0 H mg/dL
(0.7-1.3)
Glucose 147 H mg/dl
(70-99)
Total Bilirubin 1.4 H mg/dl
(0.2-1.3)
Alkaline Phosphatase 178 H U/L
(38-126)
Troponin I 0.063 H* ng/ml
Albumin 3.4 L g/dl
(3.5-5.0)
12/18/23 16:50
12/18/23 16:51
Vital Signs
Initial and Last Documented VS:
Initial Vital Signs
Temp Pulse Resp BP Pulse Ox
97.9 F 92 20 121/97 99
12/18/23 16:41 12/18/23 16:41 12/18/23 16:41 12/18/23 16:41 12/18/23 16:41
Last Documented Vital Signs
Temp Pulse Resp BP Pulse Ox
98.0 F 56 18 134/58 98
12/19/23 14:46 12/19/23 14:46 12/19/23 14:46 12/19/23 14:46 12/19/23 14:46
MDM/Problems Addressed
MDM/Problems Addressed:
Chronic kidney disease, elevated BNP, mildly elevated troponin
*Radiology
Radiology exam reviewed: radiology read reviewed
*Pulse Oximetry
Patient hypoxic: no
*EKG
Interpreted by ED Provider?: Yes
Rate: normal
Rhythm: sinus
[place]: left axis deviation
QRS Pattern: right bundle branch block
Ischemia: non-specific ST changes
*Exit Booth Agent Interpretation
Rate: normal
Interpretation: normal
Rhythm: sinus
*Critical Care Note
Total Time (30-74mins, 75-104mins- exclusive of procedures): Not Applicable
Data Reviewed
Review of Other/Old Records Reveals: Labs (November labs reviewed) and Discharge Summary (Discharge summary reviewed from December 07)
Source: patient and family
Prescriptions/Medications Considered But Not Given:
Consider Lasix but patient is relatively hypotensive
Patient Management
Discussion with other providers: Hospitalist
Escalation/DeEscalation of care consider admission/obs:
88-year-old male presents after he had an episode of lightheadedness and shortness of breath. BNP elevated. Does tilt here. Patient is sort of a difficult historian. Has been lightheaded with relative hypotension at home. Sent in by visiting
nurses due to concerns for hypotension at home. Gentle IV fluids for now and admit
ED Attending Note
-
Portions of this chart may have been created with voice recognition software.� Occasional wrong word or��sound alike� substitutions may have occurred due to the inherent limitations of voice recognition software.
Discharge Plan
Departure
Patient Disposition: Admit
Date of Disposition: 12/18/23
Time of Disposition: 19:50
Admit to: Telemetry
Presentation/result/management discussed w/ accepting MD/DO: Hospitalist
Discharge Problem:
Weakness, Near syncope, Elevated troponin, Orthostatic hypotension
Interventions
Interventions:
*Risk Screen - Suicide Last Done: 12/18/23 21:20
*General Assessment Last Done: 12/18/23 16:41
*Neglect/Abuse Screening Last Done: 12/18/23 21:20
ED- Fall Risk Assessment Last Done: 12/18/23 21:20
*ED COVID-19 Vaccine History Last Done: 12/18/23 21:20
*Nursing Disposition Last Done: 12/18/23 21:20
ED- Cardiac Assessment Last Done: 12/18/23 18:06
ED- Pulmonary Assessment Last Done: 12/18/23 18:06
Discharge Date and Time
Discharge Date/Time: 12/18/23 21:21
--- NOTE | 2023-12-18 19:57 | HPS.HSE ---
Addendum entered and electronically signed by Melvin Mendoza DO 12/18/23 21:07:
Patient seen and examined independently. Agree with findings and plan as set forth by BILL Mcneal.
Patient is an 88y M with PMH significant for hypertension. A-Fib and recent hospitalization for choledocholithiasis who presents to ED complaining of lightheadedness / dizziness. Patient states that he had fecal urgency and a single episode of
large, loose stool this afternoon. Following this, he felt lightheaded and dizzy and was unable to stand or ambulate. He presented to the ED for further evaluation. Orthostatic signs were positive here in the ED and patient received 250cc of
IVFs. He currently states that he feels improved from prior. No further loose stools / diarrhea since arrival. No abdominal pain, fever, etc.
Ass:
Orthostatic Hypotension - Likely due to volume losses
Lightheadedness / Dizziness secondary to the above
Loose Stool x 1
Abnormal Troponin - Suspect Non-Ischemic Myocardial Injury
CKD IV
Anemia of Chronic Disease
GERD / Esophageal Stricture
Paroxysmal A-Fib
DM-II
COPD without Acute Exacerbation
Benign Hypertension
Plan:
Observe overnight for further evaluation and treatment.
Hold Lasix.
Gentle IVFs overnight.
PT / OT evaluations in the AM / repeat orthostatic signs.
Continue other usual home medications without changes.
Trend troponin to peak.
Follow for any recurrent diarrhea or persistent positional lightheadedness.
Original Note:
Family Physician
-
Family Physician:
Chief Complaint
-
diarrhea
lightheaded, dizzy
History of Present Illness
88 year old with PMH for atrial fib, HTN, IDDM, gout, choledocholithiasis presented to us with lightheaded and dizzy. he had couple episodes of watery loose diarrhea. stated very weak since then. he felt lightheaded. he was not able to stand. denied
fever, chills, chest pain, sob.denied abdominal pain,n,v. denied dysuria or hematuria.
noted elevated trop and BNP. admitting for further management.
Medical History
Past Medical History
Past Medical History: Reports Other
Additional Past Medical History:
HTN
CKD
PAF
HTn
COPD
type 2 Dm
GOUT
Past Surgical History: Reports Other
Additional Past Surgical History:
cataract surgery
esophageal stretch
Social History
Tobacco: Former Smoker
Alcohol: Former
Drug: None
Personal: Single
Living: With Family
Family History
Family History: Not pertinent
Allergies / Home Medications
Allergies reflects when Allergies were last updated in [employer].
Home Medications with original date entered in [employer]
Allergy/Medication List:
Allergies
Allergy/AdvReac Type Severity Reaction Status Date / Time
haloperidol [From Haldol] Allergy Unknown Verified 12/18/23 16:40
Penicillins Allergy Unknown Verified 12/18/23 16:40
zolpidem [From Ambien] Allergy Unknown Verified 12/18/23 16:40
Home Medications
albuterol sulfate 90 mcg/actuation aerosol inhaler (Proventil HFA) 1 puff inhalation R QIDPRN PRN sob 10/16/17
atorvastatin 80 mg tablet 40 mg PO DAILY High Cholesterol 10/16/17
cholecalciferol (vitamin D3) 50 mcg (2,000 unit) tablet 2,000 unit PO DAILY Supplement 10/16/17
cinnamon bark 500 mg capsule (Cinnamon) 1,000 mg PO DAILY Supplement 10/16/17
clonidine 0.3 mg/24 hr weekly transdermal patch 0.3 mg transdermal WE Blood Pressure 10/16/17
insulin aspar prt-insulin aspart 100 unit/mL (70-30) subcutaneous soln (Novolog Mix 70-30 U-100 Insuln) 12 units SC QPM diabetes 10/16/17
insulin aspar prt-insulin aspart 100 unit/mL (70-30) subcutaneous soln (Novolog Mix 70-30 U-100 Insuln) 24 units SC DAILY diabetes 10/16/17
metoprolol tartrate 50 mg tablet 50 mg PO BID Blood Pressure 10/16/17
omeprazole 20 mg capsule,delayed release 20 mg PO DAILY Gastrointestinal Issue 10/16/17
verapamil 240 mg tablet,extended release 240 mg PO BID Blood Pressure/AFib 10/16/17
apixaban 2.5 mg tablet (Eliquis) 2.5 mg PO BID Blood Clot Prevention/Tx 12/04/23
furosemide 20 mg tablet (Lasix) 20 mg PO DAILY Fluid Retention/Swelling 12/04/23
oxycodone-acetaminophen 5 mg-325 mg tablet 1 tab PO Q6HPRN PRN severe pain 12/04/23
cefdinir 300 mg capsule 300 mg PO BID 3 days #6 caps 12/08/23
metronidazole 500 mg tablet 500 mg PO Q12H 3 days #6 tabs 12/08/23
pantoprazole 40 mg tablet,delayed release 40 mg PO DAILY #30 tabs 12/08/23
Review of Systems
-
Constitutional: Reports No Symptoms
EENT: Reports No Symptoms
Respiratory: Reports No Symptoms
Cardiac: Reports No Symptoms
Abdomen/GI: Reports Diarrhea
: Reports No Symptoms
Musculoskeletal: Reports No Symptoms
Skin: Reports No Symptoms
Neurological: Reports Dizzy and Weakness
Endocrine: Reports No Symptoms
Hematologic/Lymphatic: Reports No Symptoms
Psych: Reports No Symptoms
Physical Exam
Vital Signs
Vital Signs
Temp Pulse Resp BP Pulse Ox
97.9 F 82 23 106/63 99
12/18/23 16:41 12/18/23 18:00 12/18/23 18:00 12/18/23 18:00 12/18/23 16:41
Physical Exam
General: Well Developed, Well Nourished and No Apparent Distress
HEENT: NormoCephalic, Moist mucous membranes and Atraumatic
Respiratory: Clear
Cardiac: S1/S2 and Regular Rhythm; No Murmur or Rub
GI: Soft, Non Tender, Non Distended and Normal Bowel Sounds; No Organomegaly
Rectal: Deferred by Provider
Musculoskeletal: No Clubbing, No Cyanosis and Other (left LE chronic edema)
Skin: No Rash
Neuro: AO x 3 and Nonfocal/grossly intact
Psych: Calm
Laboratory Results
-
12/18/23 16:50
12/18/23 16:51
Laboratory Results
Total Bilirubin 1.4 mg/dl (0.2-1.3) H 12/18/23 16:51
AST 54 U/L (17-59) 12/18/23 16:51
ALT 34 U/L (0-50) 12/18/23 16:51
Alkaline Phosphatase 178 U/L (38-126) H 12/18/23 16:51
Troponin I 0.063 ng/ml H* 12/18/23 16:50
Data Reviewed
-
Diagnostic Radiology: Report Reviewed by me
Lab Data: Labs Reviewed by me
Impression/Plan
-
#generalized weakness/lightheaded likely from diarrhea
-PT/OT consulted
-no more diarrhea since this morning
-if continues to have diarrhea obtain stool for culture
#elevated trop likely demand ischemia
-chest x ray with No acute cardiopulmonary process.
-EKG with sinus rhythm with PACs and PVCs ,bundle branch block, bifascicular block
-trop 0.063
-trend trop
#anemia of chronic disease
-hgb stable at 11.8
-no active bleeding
-ctm
#CKD stage iv
-cr 2.0
-ctm
#Hx Esophageal Stricture: Patient able to tolerated liquids at present time. GI following. Continue Protonix IV. F/u GI outpatient
#Chronic HFpEF
-BNP 8200
-hold lasix, patient not in acute exacerbation
-daily weights, and strict I &O
#Paroxysmal Atrial Fibrillation
-metoprolol and eliquis continued
#DM2
-7030 12units bid
-sliding scale
-CHO diet
#COPD
- not in acute exacerbation
-cont DuoNeb
#HLD
-statin
#essential htn
-continue clonidine, metoprolol and verapamil with hold parameter
#DVT prophylaxis
-eliquis
#CODE status
-DNR
[2023-12-18] MEDS: NSS 250 IV (20:33)
[2023-12-18 21:36] LABS: Glucose - Point of Care 105 mg/dl (70-99)
[2023-12-18] MEDS: NSS 1000 IV (22:09)
[2023-12-18 23:13] LABS: Troponin I 0.072 ng/ml
--- NOTE | 2023-12-18 23:14 | PTCARENOTE ---
Patient arrived to unit via stretcher around 21:00 with dx of Elevated Trop. AAOx3. Pleasant and cooperative with care. Denies pain or discomfort. Trending Trops. Oriented to unit. Call seo within reach. Bed alarm in place.
[2023-12-19] VITALS (8 sets, daily range): BP systolic 107–148; BP diastolic 55–76; PULSE 71–92; BMI 25.6
[2023-12-19 05:44] LABS: Hemoglobin 10.1 g/dL (13.0-18.0); Mean Corp Hgb Conc. 34.8 g/dL (33.0-37.0); Mean Corpuscular Hgb 29.9 pg (27.0-31.0); Mean Corpuscular Volume 85.8 fL (80.0-94.0); Mean Platelet Volume 11.8 fL (7.4-10.4); Platelet Count 95 10^3/uL (130-400); Red Blood Cell Count 3.38 10^6/uL (4.70-6.10); Red Cell Dist. Width 15.7 % (11.5-14.5); White Blood Cell Count 3.8 10^3/uL (4.8-10.8)
[2023-12-19 06:15] LABS: Blood Urea Nitrogen 24 mg/dl (9-20); Calcium 7.8 mg/dl (8.4-10.2); Carbon Dioxide 23 mmol/L (22-30); Chloride 107 mmol/L (98-107); Estimated Creatinine Clearance 31 ml/min; Glucose 117 mg/dl (70-99); Potassium 3.8 mmol/L (3.5-5.1); Sodium 138 mmol/L (135-145); Troponin I 0.081 ng/ml; eGFR 35.76
--- NOTE | 2023-12-19 06:23 | PTCARENOTE ---
Trops increased from 0.063 to 0.072 to 0.081. Patient denies chest pain or discomfort. Vitals stable. 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 No new orders at this time.
[2023-12-19 07:58] LABS: ALT (SGPT) 28 U/L (0-50); AST (SGOT) 41 U/L (17-59); Albumin 2.6 g/dl (3.5-5.0); Alkaline Phosphatase 151 U/L (38-126); Direct Bilirubin 0.5 mg/dl (0.0-0.4); Total Bilirubin 0.9 mg/dl (0.2-1.3); Total Protein 5.4 g/dl (6.3-8.2)
[2023-12-19 08:08] LABS: Glucose - Point of Care 102 mg/dl (70-99)
[2023-12-19] MEDS: NOVOLOG FLEXPEN-LOW RESISTANCE SC ×3 (08:31→17:02)
[2023-12-19] MEDS: CALCIUM GLUCONATE 100 IV (08:38)
[2023-12-19] MEDS: CALAN EXTENDED RELEASE 240 MG PO (08:38)
[2023-12-19] MEDS: LIPITOR 40 MG PO (08:39)
[2023-12-19] MEDS: PROTONIX 40 MG PO (08:39)
[2023-12-19] MEDS: NOVOLOG MIX 70/30 FLEXPEN 12 UNITS SC (08:39)
[2023-12-19] MEDS: LOPRESSOR 50 MG PO (08:39)
[2023-12-19] MEDS: ELIQUIS 2.5 MG PO ×2 (08:39→20:58)
--- NOTE | 2023-12-19 08:59 | W.PN.HOSP.TC ---
Today's Communication/Plan
-
Stop IVF
Cardio consult
serial trop
Hematology consult
discuss CT with contrast with family
Assessment / Plan
Assessment / Plan
88yo M with PMHx of COPD, esophageal stricture, DM, CKD, Afib on ELiquis, , MR came after episode of Vertigo lasting for 1 hour when he was trying to move. Improved by holding Lasix and providing hydration. FOund elevated troponin too.
Recent admission for choledocholithiasis with concern for cholangitis and pancreatitis, discharged on 12/08/23
A/P:
#Elevated troponin
#Afib, paroxysmal on Eliquis
#Aortic stenosis
#Mitral regurgitation
with episode of dizziness, frequent PACs - Carido consult
Follow troponin
cont home meds
telemetry
Echo
#Vertigo
transient, resolved on hydration
most likely 2/2 Lasix
Stop IVF
#CKD stage 4
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
Neprhology consult if family will consider proceeding to CT with contrast during this admission
#Pancytopenia
Hematology consult
#DM type 2 with nephropathy
Cont Basal/bolus, DM diet, Accuchecks and insulin SS
#Hx of esophageal stricture
#COPD, not in exacerbation
cont home meds, asymptomatic
DVT ppx on ELiquis
DNR/DNI
I have spent at least 59min reviewing chart, test results, communication with consultants and direct patient care
Anticipated Discharge: > 48 hours
Subjective/Interval History
-
Date of Service: December 19, 2023
Objective Data
-
Labs:
Laboratory Results
12/19/23
05:09
WBC 3.8 L
Hgb 10.1 L
Hct 29.0 L
Plt Count 95 L D
Sodium 138
Potassium 3.8
Chloride 107
Carbon Dioxide 23
BUN 24 H
Creatinine 1.8 H
Glucose 117 H
Calcium 7.8 L
Total Bilirubin 0.9
AST 41
ALT 28
Alkaline Phosphatase 151 H
Vital Signs:
Vital Signs
Temp Pulse Resp BP Pulse Ox
97.7 F 88 16 148/76 99
12/19/23 07:20 12/19/23 08:39 12/19/23 07:20 12/19/23 07:20 12/19/23 07:20
I&O
12/18/23 12/19/23 12/20/23
06:59 06:59 06:59
Intake Total 480 / 480
Balance 480 / 480
Review of Systems
-
All other systems: Reviewed and negative
Constitutional: Reports No Symptoms
Physical Exam
-
General: No Apparent Distress
HEENT: Normocephalic
Cardiac: Regular Rhythm
GI: Soft, Nontender and Nondistended
Musculoskeletal: No Clubbing, No Cyanosis and No Edema
Skin: Warm
Neuro: Awake, Alert, Oriented and AO x 3
Psych: Calm
--- NOTE | 2023-12-19 09:22 | CON.CAR ---
Addendum entered and electronically signed by Caden Lees MD 12/19/23 15:37:
88 yo male with PMH of paroxysmal A fib on eliquis, bifascicular block, CKD 3b/4 admitted with dizziness. He did have orthostatic hypotension on arrival and was given IV fluids. Also noted was bradycardia and mildly elevated troponin. Also COVID+.
No chest pain. Exam with RRR, II/ systolic murmur at RUSB, no edema. Cr 1.8. EKG and tele show sinus bradycardia, 1st degree AVB, bifascicular block, and Wenckebach.
Unclear if dizziness is directly related to his bradycardia: sinus bradycardia, 1st degree AVB, bifascicular block, and Wenckebach. He is also COVID+.
He takes high dose Toprol XL and verapamil for his paroxsymal A fib. Will start by reducing the doses of these meds. We discussed the topic of PPM if he develops tachy/elliott syndrome.
Troponin elevation is likely acute non-ischemic myocardial injury in setting of CKD and COVID.
Original Note:
Consultation
Consultation Request
Date/Time Consultation Requested: 12/19/2023 07:30
Date/Time Consultation Performed: 12/19/2023 09:20
Requesting Provider: Dr. Adam
Performing Provider: BILL Ware for Dr. Lees
Reason for Consultation: Elevated troponin, abnormal EKG
Medical History
-
Chief Complaint: Dizziness
History of Present Illness:
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
gout, COPD, and type 2 diabetes mellitus presented with a chief complaint of dizziness. He had 1 episode of diarrhea at home. He endorsed lightheadedness and dizziness. He woke up feeling 'off'. He relates his dizziness started prior to the
episode. His orthostatic vital signs were positive in the emergency department. He was found to have an abnormal troponin. Initial troponin 0.063, currently 0.081, continue to trend. His proBNP was also found to be abnormal at 8200 however he
has chronic kidney disease with a baseline creatinine of 2.0. He denies chest pain and shortness of breath.
Past Medical History
Past Medical History: Arrhythmias (Paroxysmal atrial fibrillation [on apixaban]), HTN, NIDDM, Renal Failure (CKD stage IV), Valvular Disease (Mild MR, mild ) and Other (Gout)
Social History
Tobacco: Former Smoker
Alcohol: None
Personal:
Employment: Retired
Family History
Family History: Reviewed & Not Pertinent
Allergies / Home Medications
Allergy/AdvReac Type Severity Reaction Status Date / Time
haloperidol [From Haldol] Allergy Unknown Verified 12/18/23 16:40
Penicillins Allergy Unknown Verified 12/18/23 16:40
zolpidem [From Ambien] Allergy Unknown Verified 12/18/23 16:40
�Medication �Instructions �Recorded �Confirmed �Type
albuterol sulfate 90 mcg/actuation 1 puff inhalation R QIDPRN PRN sob 10/16/17 12/18/23 History
aerosol inhaler (Proventil HFA)
atorvastatin 80 mg tablet 40 mg PO DAILY High Cholesterol 10/16/17 12/18/23 History
cholecalciferol (vitamin D3) 50 2,000 unit PO DAILY Supplement 10/16/17 12/18/23 History
mcg (2,000 unit) tablet
cinnamon bark 500 mg capsule 1,000 mg PO DAILY Supplement 10/16/17 12/18/23 History
(Cinnamon)
clonidine 0.3 mg/24 hr weekly 0.3 mg transdermal WE Blood 10/16/17 12/18/23 History
transdermal patch Pressure
insulin aspar prt-insulin aspart 12 units SC QPM diabetes 10/16/17 12/18/23 History
100 unit/mL (70-30) subcutaneous
soln (Novolog Mix 70-30 U-100
Insuln)
insulin aspar prt-insulin aspart 24 units SC DAILY diabetes 10/16/17 12/18/23 History
100 unit/mL (70-30) subcutaneous
soln (Novolog Mix 70-30 U-100
Insuln)
metoprolol tartrate 50 mg tablet 50 mg PO BID Blood Pressure 10/16/17 12/18/23 History
verapamil 240 mg tablet,extended 240 mg PO BID Blood Pressure/AFib 10/16/17 12/18/23 History
release
apixaban 2.5 mg tablet (Eliquis) 2.5 mg PO BID Blood Clot 12/04/23 12/18/23 History
Prevention/Tx
furosemide 20 mg tablet (Lasix) 20 mg PO DAILY Fluid 12/04/23 12/18/23 History
Retention/Swelling
pantoprazole 40 mg tablet,delayed 40 mg PO DAILY #30 tabs 12/08/23 12/18/23 Rx
release
Review of Systems
-
History Source: Patient
All other systems: Negative unless noted
Constitutional: No Symptoms
EENT: No Symptoms
Respiratory: No Symptoms
Cardiac: No Symptoms
Abdomen/GI: No Symptoms
: No Symptoms
Musculoskeletal: No Symptoms
Skin: No Symptoms
Neurological: No Symptoms
Endocrine: No Symptoms
Hematologic/Lymphatic: No Symptoms
Physical Exam
Vital Signs
Temp Pulse Resp BP Pulse Ox
97.7 F 88 16 148/76 99
12/19/23 07:20 12/19/23 08:39 12/19/23 07:20 12/19/23 07:20 12/19/23 07:20
Lab Results
12/19/23 05:09
12/19/23 05:09
Troponin I 0.081 ng/ml H* 12/19/23 05:09
Jib-B-Oowmxxuobbf Pept 8200 pg/ml 12/18/23 16:50
Physical Exam
General: Well Developed, Well Nourished, No Apparent Distress and Comfortable
HEENT: Normocephalic, Anicteric and Moist Mucous Membranes
Respiratory: Clear and Non Labored Respirations
Cardiac: S1/S2 and Regular Rhythm
Breast: Deferred by me
GI: Soft, Non Tender, Non Distended and Normal Bowel Sounds
Rectal: Deferred by Provider
Genito-urinary: No Costovertebral Tender
Musculoskeletal: No Clubbing, No Cyanosis and Edema (+1 LLE [chronic])
Skin: Warm and Dry
Neuro: AO x 3
Hematologic/Lymphatic: No Lymphadenopathy
Psych: Calm
Impression / Plan
-
Background: 88M with paroxysmal atrial fibrillation (on apixaban), CKD stage IV, multidrug hypertension, bifascicular block, type II DM, COPD, and former smoker presented with dizziness and was found to have an abnormal troponin
Primary Cardio: Dr. Mir
Abnormal troponin
-Being trended, currently 0.081
-Denies chest pain
Orthostatic hypotension
-Symptomatic on arrival, resolved after IV fluid
Paroxysmal atrial fibrillation
-Stable in sinus rhythm
-Oral Anticoagulation: Apixaban 2.5 mg twice daily (age >80, creatinine >1.5), he denies missed doses never bleeding
-[id number]: Score at least 4 (HTN, age 75 or more, Diabetes Mellitus)
Hypertension, multidrug
-He has had discrepancies between his arms in the past. CT scan was discussed and both he and his daughter politely declined.
Sinus bradycardia
Bifascicular block
-Chronic
-Now with dizziness that resolved
-Decrease metoprolol from 50 mg twice daily to 25 mg twice daily decrease verapamil from twice daily dosing to daily dosing
-Appears to be Wenckebach on telemetry, EKG ordered
CKD stage IV, follows with Dr. Avilez in the outpatient setting, renal function at baseline
Mild aortic stenosis
Mild mid regurgitation
Data Reviewed
-
EKG: Report Reviewed by me (Sinus rhythm, PACs, PVCs, bifascicular block, lateral T wave abnormality, rate 91)
Radiology: Report Reviewed by me (CXR: No acute cardiopulmonary process.)
Medical Tests (Nuc Med, Echo etc): Report Reviewed by me (Prior echocardiogram as above)
Labs: Labs Reviewed by me
Old Records: Reviewed
[2023-12-19 09:44] LABS: TSH Reflex To Free T4 8.37 uIU/ml (0.47-4.68)
[2023-12-19 10:13] LABS: Free T4 1.64 ng/dl (0.78-2.19)
[2023-12-19 10:48] LABS: Troponin I 0.079 ng/ml
[2023-12-19 11:26] LABS: COVID-19 Antigen Positive (Negative)
--- NOTE | 2023-12-19 11:39 | W.PN.UPDATE ---
Addendum entered and electronically signed by Moose Inman MD 12/19/23 12:58:
As per further discussion with daughter- in view of new COVID-19, decision is made to pursue futher diagnostics and mgmt of R adrenal mass as outpatient with
Original Note:
Update Note
Progress Note Update
#Subclinical hypothyroidism
TSH>8, will benefit from low dose synthroid
Repeat TSH with PCP in 2-3 weeks
#COVID-19
no hypoxia, no pneumonia on XR
SInce on ELiquis - will favor Molnupiravir
[2023-12-19 12:29] LABS: Glucose - Point of Care 100 mg/dl (70-99)
[2023-12-19] MEDS: MOLNUPIRAVIR (EUA) 800 MG PO ×2 (12:38→20:58)
--- NOTE | 2023-12-19 13:00 | PTCARENOTE ---
Telemetry showing bradycardia HR 40-50's dropping as low as [address] Yoana kirby.
[2023-12-19 13:57] LABS: Troponin I 0.087 ng/ml
--- NOTE | 2023-12-19 14:36 | PTCARENOTE ---
Pt transferred to private room 422 due to positive COVID test. Report given to SARAH Cool.
--- NOTE | 2023-12-19 15:55 | PTCARENOTE ---
rec'd pt from 4E. Placed on COVID isolation. reviewed isolation with pt and daughter. placed on telemetry. pt offers no complaints at this time
[2023-12-19 16:43] LABS: Glucose - Point of Care 81 mg/dl (70-99)
[2023-12-19 17:34] LABS: Urine Albumin 1+ (Neg - Trace); Urine Bilirubin Negative (Negative); Urine Character Clear (Clear); Urine Color Yellow; Urine Glucose Negative (Negative); Urine Ketone Negative (Negative); Urine Leukocyte Negative (Negative); Urine Nitrite Negative (Negative); Urine Occult Blood Negative (Negative); Urine Urobilinogen Negative (Neg - 1+)
[2023-12-19 17:46] LABS: Urine Bacteria Few (Negative); Urine Red Blood Cell 0-2 /HPF (0-2); Urine Squamous Cell 0-2 /LPF (Few); Urine White Cell 0-2 /HPF (0-5)
[2023-12-19] MEDS: NOVOLOG MIX 70/30 FLEXPEN 6 UNITS SC (18:34)
[2023-12-19] MEDS: LOPRESSOR 25 MG PO (20:58)
[2023-12-19 21:35] LABS: Glucose - Point of Care 56 mg/dl (70-99)
[2023-12-19 22:13] LABS: Glucose - Point of Care 62 mg/dl (70-99)
[2023-12-19 22:45] LABS: Glucose - Point of Care 73 mg/dl (70-99)
[2023-12-20] VITALS (10 sets, daily range): BP systolic 76–137; BP diastolic 48–82; PULSE 63–92; O2SAT 94; BMI 25.5
[2023-12-20 01:09] LABS: Glucose - Point of Care 123 mg/dl (70-99)
[2023-12-20 02:38] LABS: Glucose - Point of Care 95 mg/dl (70-99)
[2023-12-20] MEDS: SYNTHROID 25 MCG PO (05:06)
[2023-12-20 08:14] LABS: Glucose - Point of Care 76 mg/dl (70-99)
[2023-12-20] MEDS: NOVOLOG FLEXPEN-LOW RESISTANCE SC ×3 (08:17→17:19)
[2023-12-20 08:34] LABS: % Basophils 0.5 % (0-2); % Eosinophils 1.6 % (0-6); % Immature Granulocytes 0.3 % (0-0.5); % Lymphocytes 36.1 % (20.5-51.1); % Neutrophils 47.5 % (42.2-75.2); Absolute Eosinophils 0.1 10^3/uL (0-0.7); Absolute Lymphocytes 1.4 10^3/uL (1.2-3.4); Absolute Monocytes 0.5 10^3/uL (0.1-0.6); Absolute Neutrophils 1.8 10^3/uL (1.4-6.5); Hematocrit 30.7 % (39.0-52.0); Hemoglobin 10.5 g/dL (13.0-18.0); Mean Corp Hgb Conc. 34.2 g/dL (33.0-37.0); Mean Corpuscular Volume 87.7 fL (80.0-94.0); Mean Platelet Volume 13.6 fL (7.4-10.4); Nucleated Red Blood Cells % 0 % (-); Platelet Count 98 10^3/uL (130-400); Red Cell Dist. Width 15.8 % (11.5-14.5); White Blood Cell Count 3.9 10^3/uL (4.8-10.8)
[2023-12-20 08:53] LABS: ALT (SGPT) 28 U/L (0-50); AST (SGOT) 41 U/L (17-59); Albumin 2.8 g/dl (3.5-5.0); Alkaline Phosphatase 154 U/L (38-126); Blood Urea Nitrogen 21 mg/dl (9-20); Calcium 8.5 mg/dl (8.4-10.2); Carbon Dioxide 23 mmol/L (22-30); Chloride 104 mmol/L (98-107); Estimated Creatinine Clearance 33 ml/min; Glucose 92 mg/dl (70-99); Potassium 4.6 mmol/L (3.5-5.1); Sodium 136 mmol/L (135-145); Total Bilirubin 0.9 mg/dl (0.2-1.3); Total Protein 5.8 g/dl (6.3-8.2)
[2023-12-20] MEDS: PROTONIX 40 MG PO (09:16)
[2023-12-20] MEDS: LOPRESSOR 25 MG PO ×2 (09:16→20:46)
[2023-12-20] MEDS: LIPITOR 40 MG PO (09:17)
[2023-12-20] MEDS: ELIQUIS 2.5 MG PO ×2 (09:17→20:46)
[2023-12-20] MEDS: MOLNUPIRAVIR (EUA) 800 MG PO ×2 (09:17→21:52)
[2023-12-20] MEDS: NOVOLOG MIX 70/30 FLEXPEN SC (10:02)
[2023-12-20] MEDS: CALAN EXTENDED RELEASE 120 MG PO (10:04)
--- NOTE | 2023-12-20 10:38 | PTCARENOTE ---
pt's am blood sugar was 76. DR Inman aware that he was scheduled for 12U 70/30. AM order of 70/30 was changed to 6U to start tomorrow and his evening dose will be 4units as his evening blood sugars overnight were low. Pt updated on changes.
--- NOTE | 2023-12-20 11:20 | CON.ONC ---
Impression
Impression
Pancytopenia
Viral illness with COVID
Recent hospitalizationWith pancreatitis associated with choledocholithiasis
MASH
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
Plan
Plan
Patient recently hospitalized and mounted an adequate white blood cell count response to infection
Patient has intermittent Thrombocytopenia during episodes of stress lately exacerbated by low baseline
Patient with MASH causing platelet sequestration
No additional studies at this time monitor CBC for recovery
Monitor adrenal mass as previously suggested outpatient imaging protocol
Patient History
History of Present Illness
88 year old with PMH for atrial fib, HTN, IDDM, gout, choledocholithiasis with pancreatitis recent hospitalization discharge 12/08, presented to us with lightheaded and dizzy. He had An episode of watery loose diarrhea Which occurred while the
visiting nurse was present. He was profoundly weak and presented to the emergency room. He denied fever, chills, chest pain, sob.denied abdominal pain,n,v. denied dysuria or hematuria. Noted to be COVID-positive with elevated troponin and BNP.
Past-Medical/Surgical History
Past Medical History
Paroxysmal atrial fibrillation [on apixaban]), HTN, NIDDM, Renal Failure (CKD stage IV), Valvular Disease (Mild MR, mild )
Social History
Tobacco: Former Smoker
Alcohol: None
Personal:
Employment: Retired
Family History
Family History: Reviewed & Not Pertinent
Patient Medication
�Medication �Instructions �Recorded �Confirmed �Last Taken �Type
albuterol sulfate 90 mcg/actuation 1 puff inhalation R QIDPRN PRN sob 10/16/17 12/18/23 Unknown History
aerosol inhaler (Proventil HFA)
atorvastatin 80 mg tablet 40 mg PO DAILY High Cholesterol 10/16/17 12/18/23 12/03/23 History
cholecalciferol (vitamin D3) 50 2,000 unit PO DAILY Supplement 10/16/17 12/18/23 12/03/23 History
mcg (2,000 unit) tablet
cinnamon bark 500 mg capsule 1,000 mg PO DAILY Supplement 10/16/17 12/18/23 12/03/23 History
(Cinnamon)
clonidine 0.3 mg/24 hr weekly 0.3 mg transdermal WE Blood 10/16/17 12/18/23 12/02/23 History
transdermal patch Pressure
insulin aspar prt-insulin aspart 12 units SC QPM diabetes 10/16/17 12/18/23 12/03/23 History
100 unit/mL (70-30) subcutaneous
soln (Novolog Mix 70-30 U-100
Insuln)
insulin aspar prt-insulin aspart 24 units SC DAILY diabetes 10/16/17 12/18/23 12/03/23 History
100 unit/mL (70-30) subcutaneous
soln (Novolog Mix 70-30 U-100
Insuln)
metoprolol tartrate 50 mg tablet 50 mg PO BID Blood Pressure 10/16/17 12/18/23 12/03/23 History
verapamil 240 mg tablet,extended 240 mg PO BID Blood Pressure/AFib 10/16/17 12/18/23 12/03/23 History
release
apixaban 2.5 mg tablet (Eliquis) 2.5 mg PO BID Blood Clot 12/04/23 12/18/23 12/03/23 History
Prevention/Tx
furosemide 20 mg tablet (Lasix) 20 mg PO DAILY Fluid 12/04/23 12/18/23 Unknown History
Retention/Swelling
pantoprazole 40 mg tablet,delayed 40 mg PO DAILY #30 tabs 12/08/23 12/18/23 Unknown Rx
release
Active Medications
Generic Name Dose Route Start Last Admin
Trade Name Freq PRN Reason Stop Dose Admin
Acetaminophen 650 mg 12/18/23 21:25
Acetaminophen 325 Mg Tablet PO 01/15/24 21:24
Q4HPRN PRN
mild pain/LANDA/temp> 100.4F
Albuterol 1 puff 12/18/23 21:25
Albuterol Hfa [90 Mcg/Dose] Inhaler INH
R QIDPRN PRN
sob
Protocol
Apixaban 2.5 mg 12/19/23 08:00 12/20/23 09:17
Apixaban (Eliquis) 2.5 Mg Tablet PO 01/16/24 07:59 2.5 mg
BID [place] Administration
Atorvastatin Calcium 40 mg 12/19/23 08:00 12/20/23 09:17
Atorvastatin (Lipitor) 40 Mg Tablet PO 01/16/24 07:59 40 mg
DAILY [place] Administration
Clonidine HCl 0.3 mg 12/23/23 08:00
Clonidine 0.3 Mg Patch TRANSDERM 01/20/24 07:59
WE [place]
Dextrose 12.5 grams 12/18/23 21:25
Dextrose 50% (0.5 Grams/Ml) 50 Ml Syringe IV 01/15/24 21:24
[id number] PRN
hypoglycemia
Protocol
Glucagon 1 mg 12/18/23 21:25
Glucagon 1 Mg Vial IM 01/15/24 21:24
PRN PRN
hypoglycemia
Protocol
Insulin Aspart 0 units 12/19/23 07:30 12/20/23 08:17
Insulin Aspart Low Resistance 300 Units/3 Ml Pen.Injctr SC 01/16/24 07:29 Not Given
AC [place]
Protocol
Insulin Aspart Prota 70%/Aspart 30% 6 units 12/20/23 09:34
Novolog Mix 70/30 (100 Units/Ml) 3 Ml Flexpen SC 01/16/24 07:59
DAILY [place]
Insulin Aspart Prota 70%/Aspart 30% 4 units 12/20/23 09:34
Novolog Mix 70/30 (100 Units/Ml) 3 Ml Flexpen SC 01/16/24 17:59
QPM [place]
Levothyroxine Sodium 25 mcg 12/20/23 06:00 12/20/23 05:06
Levothyroxine 25 Mcg Tablet PO 01/17/24 05:59 25 mcg
DAILY @ 0600 [place] Administration
Metoprolol Tartrate 25 mg 12/19/23 20:00 12/20/23 09:16
Metoprolol 25 Mg Regular Release Tablet PO 01/16/24 19:59 25 mg
BID [place] Administration
Molnupiravir 800 mg 12/19/23 11:45 12/20/23 09:17
Molnupiravir 200 Mg Capsule PO 12/24/23 11:44 800 mg
Q12 [place] Administration
Pantoprazole Sodium 40 mg 12/19/23 08:00 12/20/23 09:16
Pantoprazole 40 Mg Delayed Release Tablet PO 01/16/24 07:59 40 mg
DAILY [place] Administration
Sodium Chloride 0 flush 12/18/23 22:00
Sodium Chloride 0.9% (Flush) Syringe IV 01/15/24 21:59
PER PROTOCOL [place]
Verapamil HCl 120 mg 12/20/23 08:00 12/20/23 10:04
Verapamil 120 Mg (Extended Release) Tablet PO 01/17/24 07:59 120 mg
DAILY [place] Administration
Review of Systems
-
Feels well today without additional complaint other than those reviewed in HPI. His appetite is improved.
Physical Exam
-
Physical Exam
General: Well Developed, Well Nourished, No Apparent Distress and Comfortable
HEENT: Normocephalic, Anicteric and Moist Mucous Membranes
Respiratory: Clear and Non Labored Respirations
Cardiac: Regular without murmur
GI:Non Distended and Normal Bowel Sounds
Genito-urinary: No Costovertebral Tender
Musculoskeletal: No Clubbing, No Cyanosis and Edema (+1 LLE [chronic])
Skin: Warm and Dry
Neuro: AO x 3
Hematologic/Lymphatic: No Lymphadenopathy
Psych: Calm
Labs
Lab Results
WBC 3.9 10^3/uL (4.8-10.8) L 12/20/23 07:03
RBC 3.50 10^6/uL (4.70-6.10) L 12/20/23 07:03
Hgb 10.5 g/dL (13.0-18.0) L 12/20/23 07:03
Hct 30.7 % (39.0-52.0) L 12/20/23 07:03
MCV 87.7 fL (80.0-94.0) 12/20/23 07:03
MCH 30.0 pg (27.0-31.0) 12/20/23 07:03
MCHC 34.2 g/dL (33.0-37.0) 12/20/23 07:03
RDW 15.8 % (11.5-14.5) H 12/20/23 07:03
Plt Count 98 10^3/uL (130-400) L 12/20/23 07:03
MPV 13.6 fL (7.4-10.4) H 12/20/23 07:03
Abs Immat Gran (auto) 0.0 10^3/uL (0-0.05) 12/20/23 07:03
Absolute Neuts (auto) 1.8 10^3/uL (1.4-6.5) 12/20/23 07:03
Absolute Lymphs (auto) 1.4 10^3/uL (1.2-3.4) 12/20/23 07:03
Absolute Monos (auto) 0.5 10^3/uL (0.1-0.6) 12/20/23 07:03
Absolute Eos (auto) 0.1 10^3/uL (0-0.7) 12/20/23 07:03
Absolute Basos (auto) 0.0 10^3/uL (0-0.2) 12/20/23 07:03
Immature Gran % 0.3 % (0-0.5) 12/20/23 07:03
Neutrophils % 47.5 % (42.2-75.2) 12/20/23 07:03
Lymphocytes % 36.1 % (20.5-51.1) 12/20/23 07:03
Monocytes % 14.0 % (1.7-9.3) H 12/20/23 07:03
Eosinophils % 1.6 % (0-6) 12/20/23 07:03
Basophils % 0.5 % (0-2) 12/20/23 07:03
Creatinine 1.7 mg/dL (0.7-1.3) H 12/20/23 07:03
Vital Signs
Vital Signs
Temp Pulse Resp BP Pulse Ox
98.5 F 78 18 151/84 99
12/20/23 08:18 12/20/23 10:04 12/20/23 08:18 12/20/23 10:04 12/20/23 08:18
[2023-12-20 11:39] LABS: Glucose - Point of Care 147 mg/dl (70-99)
--- NOTE | 2023-12-20 12:40 | W.PN.HOSP.TC ---
Today's Communication/Plan
-
pending Echo and final cardio eval
Assessment / Plan
Assessment / Plan
88yo M with PMHx of COPD, esophageal stricture, DM, CKD, Afib on ELiquis, , MR came after episode of Vertigo lasting for 1 hour when he was trying to move. Improved by holding Lasix and providing hydration. Found elevated troponin too. Managed for
multifactorial dizziness as well as COVID-19
Recent admission for choledocholithiasis with concern for cholangitis and pancreatitis, discharged on 12/08/23
A/P:
#Elevated troponin 2/2 CKD and COVID-19 - non-ischemic myocardial injury
#Afib, paroxysmal on Eliquis
#Aortic stenosis
#Mitral regurgitation
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
with episode of dizziness, frequent PACs - [facility] consult
Follow troponin
cont home meds
telemetry
Echo pending
Cardiology: decreased toprol and verapamil, follow tele
#Vertigo
multifactorial, 2/2 AVB, medications, dehydration, COVID-19, cannot exclude episodes of hypoglycemia
transient, resolved on hydration
most likely 2/2 Lasix
Stop IVF
#Subclinical hypothyroidism
Synthroid
follow TSH in 2-3 weeks upon d/c
#COVID-19
without hypoxia or pneumonia
Molnupiravir and symptomatic treatment
#CKD stage 4
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
DIscussed with family: decision for outpatient fo;;ow up with established lockstitch sleeve maker for CT with contrast
#Pancytopenia
Hematology consult
#DM type 2 with nephropathy
Reduced insulin due to borderline low blood sugar
Cont Basal/bolus, DM diet, Accuchecks and insulin SS
#Hx of esophageal stricture
#COPD, not in exacerbation
cont home meds, asymptomatic
DVT ppx on Eliquis
DNR/DNI
I have spent at least 59min reviewing chart, test results, communication with consultants and direct patient care
Anticipated Discharge: Within 24 hours
Subjective/Interval History
-
Date of Service: December 20, 2023
Objective Data
-
Labs:
Laboratory Results
12/20/23
07:03
WBC 3.9 L
Hgb 10.5 L
Hct 30.7 L
Plt Count 98 L
Sodium 136
Potassium 4.6
Chloride 104
Carbon Dioxide 23
BUN 21 H
Creatinine 1.7 H
Glucose 92
Calcium 8.5
Total Bilirubin 0.9
AST 41
ALT 28
Alkaline Phosphatase 154 H
Vital Signs:
Vital Signs
Temp Pulse Resp BP Pulse Ox
98.1 F 74 18 126/62 98
12/20/23 11:32 12/20/23 11:32 12/20/23 11:32 12/20/23 11:32 12/20/23 11:32
I&O
12/19/23 12/20/23 12/21/23
06:59 06:59 06:59
Intake Total 1200 / 1200 480 / 480
Balance 1200 / 1200 480 / 480
Review of Systems
-
History Source: Patient
All other systems: Reviewed and negative
Physical Exam
-
General: No Apparent Distress
HEENT: Normocephalic
Respiratory: Clear to Auscultation
Cardiac: Regular Rhythm
GI: Soft, Nontender and Nondistended
Musculoskeletal: Other (No back pain and no tenderness on exam)
Skin: Warm
Neuro: Awake, Alert, Oriented and AO x 3
Psych: Calm
--- NOTE | 2023-12-20 16:00 | W.PN.CD ---
Today's Communication / Plan
-
continue metoprolol and verapamil at reduced doses
trend tele
echo
Impression / Plan
-
Background: 88M with paroxysmal atrial fibrillation (on apixaban), CKD stage IV, multidrug hypertension, 1st degree AVB, bifascicular block, type II DM, COPD, and former smoker presented with dizziness and was found to have an abnormal troponin
Primary Cardio: Dr. Mir
COVID+
-per hospitalist
Orthostatic hypotension
-has COVID, also on high dose metoprolol and verapamil on arrival
-we reduced doses of these meds
Sinus elliott, 1st degree AVB, bifascicular block, Wenckebach
-with dizziness: doses of metoprolol and verapamil reduced, and he feels better
-we discussed topic of PPM if he develops tachy/elliott
-check echo
Paroxysmal atrial fibrillation
-Stable in sinus rhythm
-Oral Anticoagulation: Apixaban 2.5 mg twice daily (age >80, creatinine >1.5), he denies missed doses never bleeding
-[id number]: Score at least 4 (HTN, age 75 or more, Diabetes Mellitus)
Hypertension
-He has had discrepancies between his arms in the past. CT scan was discussed and both he and his daughter politely declined.
CKD stage IV, follows with Dr. Avilez in the outpatient setting, renal function at baseline
Mild aortic stenosis
Mild mid regurgitation
Physical Exam
Vital Signs/Labs
Vital Signs
Temp Pulse Resp BP Pulse Ox
98.1 F 74 18 126/62 98
12/20/23 11:32 12/20/23 11:32 12/20/23 11:32 12/20/23 11:32 12/20/23 11:32
12/19/23 12/20/23 12/21/23
06:59 06:59 06:59
Actual Weight 85.474 kg 85.304 kg
12/20/23 07:03
12/20/23 07:03
Free T4 1.64 ng/dl (0.78-2.19) 12/19/23 05:09
12/18/23
16:50
Cku-Q-Cvjgzrjcznm Pept 8200
LAB Results
12/18/23 12/18/23 12/19/23
16:50 22:38 05:09
Troponin I 0.063 H* 0.072 H* 0.081 H*
12/19/23 12/19/23
09:59 13:22
Troponin I 0.079 H* 0.087 H*
Physical Exam
Constitutional: No acute distress and Comfortable
EENT: Moist mucous membranes
Cardiovascular: Rhythm & rate is regular, Pedal edema is absent, JVD pressure is normal and Systolic murmur present
Respiratory: Respiratory effort normal and Lungs clear to auscul.
Neuro/Psych: AO x 3
Data Reviewed
-
Date of Service: December 20, 2023
EKG: Other (Tele: SR 70s)
Labs: Labs Reviewed by me
[2023-12-20 17:17] LABS: Glucose - Point of Care 144 mg/dl (70-99)
[2023-12-20] MEDS: NOVOLOG MIX 70/30 FLEXPEN 4 UNITS SC (17:45)
[2023-12-20 21:19] LABS: Glucose - Point of Care 132 mg/dl (70-99)
[2023-12-21] VITALS (7 sets, daily range): BP systolic 90–128; BP diastolic 43–97; PULSE 70–74; BMI 25.0
[2023-12-21] MEDS: SYNTHROID 25 MCG PO (05:55)
[2023-12-21 08:13] LABS: Glucose - Point of Care 145 mg/dl (70-99)
[2023-12-21] MEDS: NOVOLOG FLEXPEN-LOW RESISTANCE SC (08:21)
--- NOTE | 2023-12-21 08:23 | VNURNOTE ---
Chart reviewed. [facility] and [facility]. Will continue to follow hospital course and DC plans.
--- NOTE | 2023-12-21 09:30 | CM ---
Addendum entered by Silvia Epstein 12/21/23 09:39:
Patient has prescription coverage, daughter reports [facility] assists with costs. Daughter reports when patient is stable for discharge, family will provide transportation home. CM will continue to follow for all discharge planning needs.
[facility]
Original Note:
CM reviewed chart, patient is covid positive. CM placed call to daughterDarcy, initial assessment completed. Patient resides in apartment, independently, on families property. Patient uses a cane and rolling walker for ambulation, is current with
[facility]. Daughter denies SNF history. Patient PCP Dr. Robertson, pharmacy [facility] in [place]. Patient
[2023-12-21] MEDS: MOLNUPIRAVIR (EUA) 800 MG PO ×2 (09:34→20:24)
[2023-12-21] MEDS: PROTONIX 40 MG PO (09:34)
[2023-12-21] MEDS: CALAN EXTENDED RELEASE PO (09:35)
[2023-12-21] MEDS: LIPITOR 40 MG PO (09:35)
[2023-12-21] MEDS: LOPRESSOR 25 MG PO ×2 (09:35→19:43)
[2023-12-21] MEDS: ELIQUIS 2.5 MG PO ×2 (09:35→19:44)
[2023-12-21] MEDS: NOVOLOG MIX 70/30 FLEXPEN 6 UNITS SC (09:36)
[2023-12-21 11:57] LABS: Glucose - Point of Care 245 mg/dl (70-99)
[2023-12-21] MEDS: NOVOLOG FLEXPEN-LOW RESISTANCE 2 UNITS SC (12:20)
--- NOTE | 2023-12-21 12:28 | W.PN.CD ---
Today's Communication / Plan
-
- ECHO today
- Minimally aggressive treatment and PPM only if rate control is difficult with RVR. .
Impression / Plan
-
Background: 88M with paroxysmal atrial fibrillation (on apixaban), CKD stage IV, multidrug hypertension, 1st degree AVB, bifascicular block, type II DM, COPD, and former smoker presented with dizziness and was found to have an abnormal troponin
Primary Cardio: Dr. Mir
COVID+
-per hospitalist
Orthostatic hypotension
-has COVID, also on high dose metoprolol and verapamil on arrival
-we reduced doses of these meds
Sinus elliott, 1st degree AVB, bifascicular block, Wenckebach
-with dizziness: doses of metoprolol and verapamil reduced, and he feels better
-we discussed topic of PPM if he develops tachy/elliott or AF with RVR is noted.
-Echo today
Paroxysmal atrial fibrillation
-Stable in sinus rhythm
-Oral Anticoagulation: Apixaban 2.5 mg twice daily (age >80, creatinine >1.5), he denies missed doses never bleeding
-[id number]: Score at least 4 (HTN, age 75 or more, Diabetes Mellitus)
Hypertension
-He has had discrepancies between his arms in the past. CT scan was discussed and both he and his daughter politely declined.
CKD stage IV, follows with Dr. Avilez in the outpatient setting, renal function at baseline
Mild aortic stenosis
Mild mid regurgitation
ECHO 05/01/2021: normal left ventricular systolic function. LV ejection fraction is 55-60%
Physical Exam
Vital Signs/Labs
Vital Signs
Temp Pulse Resp BP Pulse Ox
98.2 F 71 18 107/97 93
12/21/23 11:25 12/21/23 11:25 12/21/23 11:25 12/21/23 11:25 12/21/23 11:25
12/20/23 12/21/23 12/22/23
06:59 06:59 06:59
Actual Weight 85.304 kg 83.631 kg
12/20/23 07:03
12/20/23 07:03
Free T4 1.64 ng/dl (0.78-2.19) 12/19/23 05:09
12/18/23
16:50
Qnz-X-Eqqnwualojb Pept 8200
LAB Results
12/18/23 12/18/23 12/19/23
16:50 22:38 05:09
Troponin I 0.063 H* 0.072 H* 0.081 H*
12/19/23 12/19/23
09:59 13:22
Troponin I 0.079 H* 0.087 H*
Physical Exam
Constitutional: No acute distress and Comfortable
EENT: Anicteric and Moist mucous membranes
Cardiovascular: Rhythm & rate is regular, Pedal edema is absent and Systolic murmur present
Respiratory: Respiratory effort normal and Lungs clear to auscul.
GI: Soft, Non tender and Normal bowel sounds
Neuro/Psych: Alert, Oriented and AO x 3
Data Reviewed
-
Date of Service: December 21, 2023
Medical Decision Making: Reviewed Test Results, Independent Historian Assessment and Test Interpretation
EKG: Tracing Personally Visualized and interpreted
Echo: Report Reviewed by me
Labs: Labs Reviewed by me
Old Records: Reviewed
[2023-12-21 16:45] LABS: Glucose - Point of Care 155 mg/dl (70-99)
--- NOTE | 2023-12-21 17:11 | W.PN.HOSP.TC ---
Today's Communication/Plan
-
Echo.
Observe hemodynamics on adjusted/reduced cardiovascular regimen.
Monitor for recurrent hypoglycemia.
PT evaluation
Discharge planing
Assessment / Plan
Assessment / Plan
88yo M with PMHx of COPD, esophageal stricture, DM, CKD, Afib on ELiquis, , MR came after episode of Vertigo lasting for 1 hour when he was trying to move. Improved by holding Lasix and providing hydration. Found elevated troponin too. Managed for
multifactorial dizziness as well as COVID-19
Recent admission for choledocholithiasis with concern for cholangitis and pancreatitis, discharged on 12/08/23
A/P:
#Elevated troponin 2/2 CKD and COVID-19 - non-ischemic myocardial injury
#Afib, paroxysmal on Eliquis
#Aortic stenosis
#Mitral regurgitation
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
with episode of dizziness, frequent PACs - [facility] consult
cont home meds
telemetry
Echo pending
Cardiology: decreased toprol and verapamil, follow tele
#Vertigo
multifactorial, 2/2 AVB, medications, dehydration, COVID-19, cannot exclude episodes of hypoglycemia
transient, resolved on hydration
most likely 2/2 Lasix
Stop IVF
#Subclinical hypothyroidism
Synthroid
follow TSH in 2-3 weeks upon d/c
#COVID-19
without hypoxia or pneumonia
Molnupiravir and symptomatic treatment
#CKD stage 4
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
DIscussed with family: decision for outpatient fo;;ow up with established milling supervisor for CT with contrast
#Pancytopenia
Suspect in the settings of acute viral syndrome
#DM type 2 with nephropathy
Reduced insulin due to borderline low blood sugar
Cont Basal/bolus, DM diet, Accuchecks and insulin SS
#Hx of esophageal stricture
#COPD, not in exacerbation
cont home meds, asymptomatic
DVT ppx on Eliquis
DNR/DNI
I have spent at least 59min reviewing chart, test results, communication with consultants and direct patient care
Anticipated Discharge: 24 - 48 hours
Subjective/Interval History
-
Date of Service: December 21, 2023
Objective Data
-
Vital Signs:
Vital Signs
Temp Pulse Resp BP Pulse Ox
98.3 F 72 20 96/54 95
12/21/23 15:43 12/21/23 15:43 12/21/23 15:43 12/21/23 15:43 12/21/23 15:43
I&O
12/20/23 12/21/23 12/22/23
06:59 06:59 06:59
Intake Total 1200 / 1200 1680 / 1680
Balance 1200 / 1200 1680 / 1680
Physical Exam
-
General: No Apparent Distress
HEENT: Normocephalic
Respiratory: Clear to Auscultation
Cardiac: Regular Rhythm
GI: Soft, Nontender and Nondistended
Musculoskeletal: Other (No back pain and no tenderness on exam)
Skin: Warm
Neuro: Awake, Alert, Oriented and AO x 3
Psych: Calm
[2023-12-21] MEDS: NOVOLOG MIX 70/30 FLEXPEN 4 UNITS SC (17:27)
[2023-12-21] MEDS: NOVOLOG FLEXPEN-LOW RESISTANCE 1 UNITS SC (17:27)
[2023-12-21 22:58] LABS: Glucose - Point of Care 161 mg/dl (70-99)
[2023-12-22 03:34] VITALS: BP 114/67
[2023-12-22] MEDS: SYNTHROID 25 MCG PO (05:46)
[2023-12-22 05:51] VITALS: BMI 25.1
[2023-12-22 07:00] VITALS: BP 114/67
[2023-12-22 07:17] LABS: Glucose - Point of Care 118 mg/dl (70-99)
[2023-12-22] MEDS: NOVOLOG FLEXPEN-LOW RESISTANCE SC ×2 (07:25→11:42)
[2023-12-22] MEDS: PROTONIX 40 MG PO (08:57)
[2023-12-22] MEDS: NOVOLOG MIX 70/30 FLEXPEN 6 UNITS SC (08:57)
[2023-12-22] MEDS: LOPRESSOR 25 MG PO (08:58)
[2023-12-22] MEDS: ELIQUIS 2.5 MG PO (08:59)
[2023-12-22] MEDS: CALAN EXTENDED RELEASE 120 MG PO (08:59)
[2023-12-22] MEDS: MOLNUPIRAVIR (EUA) 800 MG PO (08:59)
[2023-12-22] MEDS: LIPITOR 40 MG PO (08:59)
[2023-12-22 11:00] VITALS: BP 125/65
[2023-12-22 11:40] LABS: Glucose - Point of Care 147 mg/dl (70-99)
--- NOTE | 2023-12-22 12:18 | W.PN.CD ---
Today's Communication / Plan
-
- Stable fro cardiac stand point
- New regimen is acceptable for outpatient
- ECHO prior to discharge or when out of isolation.
Impression / Plan
-
Background: 88M with paroxysmal atrial fibrillation (on apixaban), CKD stage IV, multidrug hypertension, 1st degree AVB, bifascicular block, type II DM, COPD, and former smoker presented with dizziness and was found to have an abnormal troponin
Primary Cardio: Dr. Mir
COVID+
-per hospitalist
Orthostatic hypotension
-has COVID, also on high dose metoprolol and verapamil on arrival
-we reduced doses of these meds
Sinus elliott, 1st degree AVB, bifascicular block, Wenckebach
-with dizziness: doses of metoprolol and verapamil reduced, and he feels better
-we discussed topic of PPM if he develops tachy/elliott or AF with RVR is noted.
-Echo prior to discharge. No urgency while in isolation.
Paroxysmal atrial fibrillation
-Stable in sinus rhythm
-Oral Anticoagulation: Apixaban 2.5 mg twice daily (age >80, creatinine >1.5), he denies missed doses never bleeding
-[id number]: Score at least 4 (HTN, age 75 or more, Diabetes Mellitus)
Hypertension
-He has had discrepancies between his arms in the past. CT scan was discussed and both he and his daughter politely declined.
- BP is well controlled at this time.
CKD stage IV, follows with Dr. Avilez in the outpatient setting, renal function at baseline
Mild aortic stenosis
Mild mid regurgitation
ECHO 05/01/2021: normal left ventricular systolic function. LV ejection fraction is 55-60%
Physical Exam
Vital Signs/Labs
Vital Signs
Temp Pulse Resp BP Pulse Ox
98.8 F 74 16 125/65 100
12/22/23 11:00 12/22/23 11:00 12/22/23 11:00 12/22/23 11:00 12/22/23 11:00
12/21/23 12/22/23 12/23/23
06:59 06:59 06:59
Actual Weight 83.631 kg 83.943 kg
12/20/23 07:03
12/20/23 07:03
Free T4 1.64 ng/dl (0.78-2.19) 12/19/23 05:09
12/18/23
16:50
Dds-W-Jojevrktznk Pept 8200
LAB Results
12/19/23
13:22
Troponin I 0.087 H*
Physical Exam
Constitutional: No acute distress, Comfortable and Other (Limited exam due to isolation. )
Data Reviewed
-
Date of Service: December 22, 2023
Medical Decision Making: Reviewed Test Results, Independent Historian Assessment and Test Interpretation
EKG: Tracing Personally Visualized and interpreted
Labs: Labs Reviewed by me
Old Records: Reviewed
[2023-12-22 14:49] VITALS: BP 108/60; BP 108/62; BP 122/63; PULSE 76; PULSE 78; PULSE 79
--- NOTE | 2023-12-22 15:12 | W.DS.TRANS ---
DC Summary - [employer] Consultant
-
Discharge Instructions:
Sleep Apnea Risk Intermediate
Discharge Diagnosis/Procedures COVID.
Symptomatic hypotension
Diet Regular
Blood Work TSH/free T4 in 4-6 weeks
Instructions:
Stand-Alone Forms:
Changes to Home Medications: Yes
Discharge Medications:
DC Medications w/original date entered in [facility]
albuterol sulfate 90 mcg/actuation aerosol inhaler (Proventil HFA) 1 puff inhalation R QIDPRN PRN sob 10/16/17
atorvastatin 80 mg tablet 40 mg PO DAILY High Cholesterol 10/16/17
cholecalciferol (vitamin D3) 50 mcg (2,000 unit) tablet 2,000 unit PO DAILY Supplement 10/16/17
cinnamon bark 500 mg capsule (Cinnamon) 1,000 mg PO DAILY Supplement 10/16/17
clonidine 0.3 mg/24 hr weekly transdermal patch 0.3 mg transdermal WE Blood Pressure 10/16/17
apixaban 2.5 mg tablet (Eliquis) 2.5 mg PO BID Blood Clot Prevention/Tx 12/04/23
furosemide 20 mg tablet (Lasix) 20 mg PO DAILY Fluid Retention/Swelling 12/04/23
pantoprazole 40 mg tablet,delayed release 40 mg PO DAILY #30 tabs 12/08/23
insulin aspar prt-insulin aspart 100 unit/mL (70-30) subcutaneous soln (Novolog Mix 70-30 U-100 Insuln) 4 unit (0.04 mL) SC QPM diabetes #0 mL 12/22/23
insulin aspar prt-insulin aspart 100 unit/mL (70-30) subcutaneous soln (Novolog Mix 70-30 U-100 Insuln) 6 units SC DAILY diabetes #0 mL 12/22/23
levothyroxine 25 mcg tablet 25 mcg PO DAILY @ 0600 #30 tabs 12/22/23
metoprolol tartrate 50 mg tablet 25 mg (1/2 x 50 mg) PO BID Blood Pressure #0 tabs 12/22/23
verapamil 240 mg tablet,extended release 120 mg (1/2 x 240 mg) PO BID Blood Pressure/AFib #0 tabs 12/22/23
Home Medication Changes
Metoprolol and Verapamil dose reduced
Levothyroxine initiated
Pending Results: No
--- NOTE | 2023-12-22 15:32 | CM ---
CM reviewed chart and noted dc order
Call to pt as he remains on COVID precautions
Plan for home with [facility]
IMM verbally reviewed- copy provided
He has alerted family for ride home
Discharge Disposition- home with [facility]- family transport
[2023-12-22 16:14] LABS: Glucose - Point of Care 171 mg/dl (70-99)
[2023-12-22] MEDS: NOVOLOG MIX 70/30 FLEXPEN 4 UNITS SC (17:04)
[2023-12-22] MEDS: NOVOLOG FLEXPEN-LOW RESISTANCE 1 UNITS SC (17:04)
== END 2023-12-22 17:49 | disposition home health service (06) | DRG 178 ==
LOC: 4 WEST ACU 13:20
PROVIDERS: Internal Medicine; Registered Nurse; ADMITTING PHYSICIAN Hospitalist; ATTENDING PHYSICIAN Internal Medicine; CONSULT PHYSICIAN Internal Medicine; EMERGENCY PHYSICIAN Emergency Medicine; FAMILY PHYSICIAN Internal Medicine; OTHER PHYSICIAN Internal Medicine Hematology & Oncology
PROC: 3E0DXGC Introduction of Other Therapeutic Substance into Mouth and Pharynx, External Approach (ICD-10-PCS; 2023-12-19)
DX: U07.1 COVID-19 (principal); D61.818 Other pancytopenia; I13.0 Hypertensive heart and chronic kidney disease with heart failure and stage 1 through stage 4 chronic kidney disease, or unspecified chronic kidney disease; I50.32 Chronic diastolic (congestive) heart failure; N18.4 Chronic kidney disease, stage 4 (severe); I5A Non-ischemic myocardial injury (non-traumatic); I45.2 Bifascicular block; Z66 Do not resuscitate; I95.1 Orthostatic hypotension; E11.22 Type 2 diabetes mellitus with diabetic chronic kidney disease; D63.1 Anemia in chronic kidney disease; K21.9 Gastro-esophageal reflux disease without esophagitis; K22.2 Esophageal obstruction; J44.9 Chronic obstructive pulmonary disease, unspecified; I48.0 Paroxysmal atrial fibrillation; M10.9 Gout, unspecified; R00.1 Bradycardia, unspecified; E03.8 Other specified hypothyroidism; E27.9 Disorder of adrenal gland, unspecified; K80.50 Calculus of bile duct without cholangitis or cholecystitis without obstruction; I08.0 Rheumatic disorders of both mitral and aortic valves; I44.0 Atrioventricular block, first degree; E11.649 Type 2 diabetes mellitus with hypoglycemia without coma; R42 Dizziness and giddiness; Z88.0 Allergy status to penicillin; Z87.891 Personal history of nicotine dependence; Z79.4 Long term (current) use of insulin; Z79.01 Long term (current) use of anticoagulants; Z79.899 Other long term (current) drug therapy
CPT/HCPCS: 71046; 80053; 81003; 81015; 82248; 82962; 83880; 84439; 84443; 84484; 85025; 85027; 87502; 87811; 93005; 93306; 96360; 97110; 97162; 97166; 99285

== ENCOUNTER → 2024-01-07 10:20 | Outpatient (REF) | payer MEDICARE, SELFPAY | LOC: HWRAD 10:20 | PROVIDERS: ATTENDING PHYSICIAN Internal Medicine | DX: D35.02 Benign neoplasm of left adrenal gland (principal) | CPT/HCPCS: 74176 ==

== ENCOUNTER → 2025-01-03 13:09 | Outpatient (REF) | payer MEDICARE, SELFPAY | LOC: HWRCS 13:09 | PROVIDERS: ATTENDING PHYSICIAN Internal Medicine Cardiovascular Disease; FAMILY PHYSICIAN Internal Medicine | DX: I48.0 Paroxysmal atrial fibrillation (principal); I35.0 Nonrheumatic aortic (valve) stenosis | CPT/HCPCS: 93306 ==